=== PATIENT | male | born 1960 | race African-American/Black ===

== ENCOUNTER 2018-05-22 18:49 | Emergency (ER) | payer MEDICAID ==
[~2018-05-22] VITALS: Ht 185.4 cm; Wt 114.0 kg
[2018-05-22 19:11] VITALS: BP 177/119
== END 2018-05-22 22:00 | disposition left against medical advice (07) ==
LOC: ER 18:49
DX: R07.89 Other chest pain (principal); Z53.21 Procedure and treatment not carried out due to patient leaving prior to being seen by health care provider

== ENCOUNTER 2020-06-21 20:08 | Inpatient (IN) | payer MEDICAID ==
[~2020-06-21] VITALS: Ht 180.3 cm; Wt 93.9 kg
[2020-06-21] MEDS ORDERED: METOPROLOL TARTRATE 5MG/5ML VIAL IV ONE (20:45)
[2020-06-21] MEDS ORDERED: SODIUM CHLORIDE 0.9% 1,000 ML IV ONE (20:45)
[2020-06-21 20:52] LABS: BASOPHILS % 0.2 % (0.0-2.0); HEMATOCRIT. 51.5 % (42.0-52.0); HEMOGLOBIN. 16.3 g/dL (14.0-18.0); LYMPHOCYTES % 10.5 % (20.0-50.0); MEAN CORPUSCULAR VOLUME 91.7 fL (80.0-94.0); MEAN PLATELET VOLUME 9.6 fl (7.4-10.4); MONOCYTES % 10.6 % (2.0-8.0); NEUTROPHILS % 78.7 % (40.0-76.0); PLATELET 209 x1000/uL (130-400); RED BLOOD CELL COUNT 5.61 mill/uL (4.7-6.1); RED CELL DISTRIBUTION WIDTH 14.3 % (11.6-14.6)
[2020-06-21 20:58] LABS: CHLORIDE 110 mEq/L (98-107)
[2020-06-21] MEDS ORDERED: VANCOMYCIN 1 G PREMIX 200 ML IV ONE (21:00)
[2020-06-21] MEDS ORDERED: CEFTRIAXONE 1 G PREMIX 50 ML IV ONE (21:00)
[2020-06-21 21:02] LABS: ETHANOL BLOOD < 10 mg/dL; INR 1.1; PROTHROMBIN TIME 11.6 sec (9.6-11.0)
[2020-06-21] MEDS ORDERED: METOPROLOL TARTRATE 5MG/5ML VIAL IV NR (21:15)
[2020-06-21 21:23] LABS: BG BASE EXCESS 0.5 mmol/L (-2.0-2.0); BG CARBOXYHEMOGLOBIN 0.5 % (0.5-1.5); BG DEOXYHEMOGLOBIN 3.5 % (0.0-5.0); BG FRACTION INSPIRED OXYGEN 21; BG HCO3 ACT 24.1 mmol/L (22.0-26.0); BG METHEMOGLOBIN 0.3 % (0.0-1.5); BG OXYGEN SATURATION 96.5 % (92.0-98.5); BG OXYHEMOGLOBIN 95.7 % (94.0-97.0); BG PCO2 35.7 mmHg (35.0-45.0); BG PH 7.447 (7.350-7.450); BG PO2 85.8 mmHg (75.0-100.0); BG SAMPLE SITE LEFT RADIAL; BG TOTAL HEMOGLOBIN 15.4 g/dL (12.0-18.0); BG VENT MODE ROOM AIR
[2020-06-21 21:32] LABS: CREATINE KINASE 3276 IU/L (39-308)
[2020-06-21] MEDS ORDERED: SODIUM CHLORIDE 0.9% 1000ML BAG (SEPSIS BOLUS) IV ONE (22:00)
[2020-06-21 22:36] LABS: CLARITY URINE CLEAR (CLEAR); COLOR URINE DARK YELLOW (YELLOW); KETONES URINE 1+ (NEGATIVE); LEUKOCYTE ESTERASE URINE 1+ (NEGATIVE); NITRITE URINE NEGATIVE (NEGATIVE); OCCULT BLOOD URINE 1+ (NEGATIVE); PROTEIN URINE 1+ (NEGATIVE); SPECIFIC GRAVITY URINE 1.033 (1.005-1.030)
[2020-06-21 22:54] LABS: *AMPHETAMINES SCREEN URINE NEGATIVE (NEGATIVE); *BARBITURATES SCREEN URINE NEGATIVE (NEGATIVE); *BENZODIAZEPINES SCREEN URINE NEGATIVE (NEGATIVE); *COCAINE SCREEN URINE NEGATIVE (NEGATIVE)
[2020-06-21 22:55] LABS: CANNABINOID URINE SCREEN PRESUMTIVE POSITIVE (NEGATIVE); METHADONE URINE SCREEN NEGATIVE (NEGATIVE); OPIATES URINE SCREEN NEGATIVE (NEGATIVE); PHENCYCLIDINE URINE SCREEN NEGATIVE (NEGATIVE)
[2020-06-22] VITALS (82 sets, daily range): BP systolic 91–175; BP diastolic 36–121
[2020-06-22] MEDS: LEVETIRACETAM 500MG PREMIX 100 ML IV SCH ×3 (02:11→21:27)
[2020-06-22] MEDS ORDERED: ATOR-2 PO (02:26)
[2020-06-22] MEDS ORDERED: LISI40TA13 MT (02:26)
[2020-06-22] MEDS ORDERED: ASPI-1406 PO (02:26)
[2020-06-22] MEDS ORDERED: CLOP75TA33 PO (02:26)
[2020-06-22] MEDS ORDERED: *PATIENT'S OWN MEDICATION STORAGE XX SCH (03:15)
[2020-06-22] MEDS: DEXT 5%/LACTATED RINGERS 1,000 ML IV SCH ×2 (06:33→22:58)
[2020-06-22] MEDS: NICARDIPINE 100 MG in SODIUM CHLORIDE 0.9% 60 ML IV PRN ×2 (06:35→16:20)
[2020-06-22] MEDS: PANTOPRAZOLE SODIUM 40 MG/VIAL IV SCH (09:30)
[2020-06-22] MEDS: PIPERACILLIN/TAZOBACTAM 3.375 G in DEXT 5% WATER 100 ML IV SCH ×3 (09:30→22:58)
[2020-06-22] MEDS ORDERED: MANNITOL 20% (20GM/100ML) BAG 500ML PREMIX IV ONE (10:45)
[2020-06-22] MEDS ORDERED: THROMBIN (BOVINE) 5000 UNITS/VIAL TOP ONE (11:02)
[2020-06-22] MEDS ORDERED: BACITRACIN 15GM TUBE TOP ONE (11:02)
[2020-06-22] MEDS ORDERED: BACITRACIN 50,000 UNITS/VIAL ONE (11:03)
[2020-06-22] MEDS ORDERED: LACTATED RINGERS 3,000 ML IV ONE (11:03)
[2020-06-22] MEDS: DEXAMETHASONE 4MG/ML 1ML VIAL IV SCH ×3 (11:38→23:16)
[2020-06-22 11:50] LABS: HEPATITIS B SURFACE ANTIGEN NEGATIVE
[2020-06-22] MEDS ORDERED: MANNITOL 20% 125 ML IV NR (12:00)
[2020-06-22 12:19] LABS: HEPATITIS A AB IGM NEGATIVE (NEGATIVE)
[2020-06-22] MEDS ORDERED: DEXAMETHASONE 4MG/ML 1ML VIAL ONE (13:02)
[2020-06-22] MEDS ORDERED: ROCURONIUM BROMIDE 10MG/ML VIAL 5ML IV ONE (13:02)
[2020-06-22] MEDS ORDERED: HYDROMORPHONE HCL/PF 2MG/ML (OR) ONE (13:38)
[2020-06-22] MEDS ORDERED: CEFAZOLIN SODIUM 1000MG/VIAL IV SCH (14:00)
[2020-06-22] MEDS ORDERED: CEFAZOLIN SODIUM 1000MG/VIAL ONE (14:08)
[2020-06-22] MEDS ORDERED: METOPROLOL TARTRATE 5MG/5ML VIAL IV ONE (14:48)
[2020-06-22] MEDS ORDERED: HYDRALAZINE 20MG/ML VIAL ONE ×3 (14:50→15:21)
[2020-06-22] MEDS ORDERED: LABETALOL HCL 5MG/ML VIAL 20ML IV ONE (15:21)
[2020-06-22] MEDS: CEFAZOLIN 1000MG PREMIX 50 ML IV SCH ×2 (16:19→22:34)
[2020-06-22 17:32] LABS: BG BASE EXCESS -0.7 mmol/L (-2.0-2.0); BG CARBOXYHEMOGLOBIN 0.5 % (0.5-1.5); BG DEOXYHEMOGLOBIN 0.7 % (0.0-5.0); BG FRACTION INSPIRED OXYGEN 100; BG HCO3 ACT 24.4 mmol/L (22.0-26.0); BG METHEMOGLOBIN 0.5 % (0.0-1.5); BG OXYGEN SATURATION 99.3 % (92.0-98.5); BG OXYHEMOGLOBIN 98.3 % (94.0-97.0); BG PCO2 41.7 mmHg (35.0-45.0); BG PH 7.385 (7.350-7.450); BG PO2 197.2 mmHg (75.0-100.0); BG SAMPLE SITE RIGHT RADIAL; BG TOTAL HEMOGLOBIN 14.4 g/dL (12.0-18.0); BG TOTAL RESPIRATORY RATE 17 b/min; BG VENT MODE VENT - AC
[2020-06-22] MEDS: MORPHINE SULFATE 4 MG/ML CPJ (NOT FOR IM USE) IV PRN (21:28)
[2020-06-22] MEDS: PROPOFOL 10MG/ML 100ML 100 ML IV PRN (21:28)
[2020-06-23] VITALS (94 sets, daily range): BP systolic 95–152; BP diastolic 53–95
[2020-06-23] MEDS: PIPERACILLIN/TAZOBACTAM 3.375 G in DEXT 5% WATER 100 ML IV SCH ×4 (03:25→21:04)
[2020-06-23] MEDS: MORPHINE SULFATE 4 MG/ML CPJ (NOT FOR IM USE) IV PRN (03:41)
[2020-06-23] MEDS: CEFAZOLIN 1000MG PREMIX 50 ML IV SCH ×3 (05:51→21:04)
[2020-06-23] MEDS: DEXAMETHASONE 4MG/ML 1ML VIAL IV SCH ×4 (05:52→23:03)
[2020-06-23] MEDS: PROPOFOL 10MG/ML 100ML 100 ML IV PRN ×3 (05:55→22:53)
[2020-06-23 05:58] LABS: HEMOGLOBIN. 13.1 g/dL (14.0-18.0); MEAN CORPUSCULAR HEMOGLOBIN 29.2 pg (28.0-32.0); MEAN CORPUSCULAR VOLUME 91.7 fL (80.0-94.0); MEAN PLATELET VOLUME 9.3 fl (7.4-10.4); PLATELET 145 x1000/uL (130-400); RED BLOOD CELL COUNT 4.48 mill/uL (4.7-6.1); RED CELL DISTRIBUTION WIDTH 14.6 % (11.6-14.6)
[2020-06-23 06:20] LABS: CHLORIDE 115 mEq/L (98-107)
[2020-06-23 06:29] LABS: LDL CHOLESTEROL 82 mg/dL (5-100)
[2020-06-23 06:34] LABS: T4 FREE 1.24 ng/dL (0.76-1.46)
[2020-06-23 06:37] LABS: HDL CHOLESTEROL 36 mg/dL (40-59)
[2020-06-23 07:51] LABS: BG BASE EXCESS -0.3 mmol/L (-2.0-2.0); BG DEOXYHEMOGLOBIN 2.6 % (0.0-5.0); BG FRACTION INSPIRED OXYGEN 70; BG HCO3 ACT 24.8 mmol/L (22.0-26.0); BG METHEMOGLOBIN 0.3 % (0.0-1.5); BG OXYGEN SATURATION 97.4 % (92.0-98.5); BG OXYHEMOGLOBIN 97.1 % (94.0-97.0); BG PCO2 42.1 mmHg (35.0-45.0); BG PH 7.388 (7.350-7.450); BG PO2 100.2 mmHg (75.0-100.0); BG SAMPLE SITE ALINE; BG TOTAL HEMOGLOBIN 14.1 g/dL (12.0-18.0); BG TOTAL RESPIRATORY RATE 14 b/min; BG VENT MODE VENT - AC
[2020-06-23 09:03] LABS: PLATELET ESTIMATE NORMAL
[2020-06-23] MEDS: PANTOPRAZOLE SODIUM 40 MG/VIAL IV SCH (09:30)
[2020-06-23] MEDS: LEVETIRACETAM 500MG PREMIX 100 ML IV SCH ×2 (09:30→20:52)
[2020-06-23 10:59] LABS: BG BASE EXCESS 1.2 mmol/L (-2.0-2.0); BG CARBOXYHEMOGLOBIN 0.1 % (0.5-1.5); BG DEOXYHEMOGLOBIN 1.2 % (0.0-5.0); BG FRACTION INSPIRED OXYGEN 70; BG HCO3 ACT 26.2 mmol/L (22.0-26.0); BG METHEMOGLOBIN 0.3 % (0.0-1.5); BG OXYGEN SATURATION 98.8 % (92.0-98.5); BG OXYHEMOGLOBIN 98.4 % (94.0-97.0); BG PCO2 42.7 mmHg (35.0-45.0); BG PH 7.405 (7.350-7.450); BG PO2 142.7 mmHg (75.0-100.0); BG SAMPLE SITE RIGHT RADIAL; BG TOTAL HEMOGLOBIN 13.7 g/dL (12.0-18.0); BG VENT MODE VENT - AC
[2020-06-23] MEDS: DEXTROSE 5% WATER 1,000 ML IV SCH (12:43)
[2020-06-23] MEDS: NICARDIPINE 100 MG in SODIUM CHLORIDE 0.9% 60 ML IV PRN (14:27)
[2020-06-23 16:54] LABS: FOLIC ACID (FOLATE) SERUM 7.4 ng/mL (>5.38)
[2020-06-24] VITALS (98 sets, daily range): BP systolic 85–157; BP diastolic 49–92
[2020-06-24] MEDS: NICARDIPINE 100 MG in SODIUM CHLORIDE 0.9% 60 ML IV PRN ×3 (00:43→23:24)
[2020-06-24] MEDS: DEXTROSE 5% WATER 1,000 ML IV SCH ×2 (02:52→19:32)
[2020-06-24] MEDS: PROPOFOL 10MG/ML 100ML 100 ML IV PRN ×5 (02:54→23:54)
[2020-06-24] MEDS: PIPERACILLIN/TAZOBACTAM 3.375 G in DEXT 5% WATER 100 ML IV SCH ×4 (03:02→21:35)
[2020-06-24 05:46] LABS: HEMATOCRIT. 38.8 % (42.0-52.0); HEMOGLOBIN. 12.4 g/dL (14.0-18.0); MEAN CORPUSCULAR HEMOGLOBIN 29.4 pg (28.0-32.0); MEAN CORPUSCULAR VOLUME 91.6 fL (80.0-94.0); MEAN PLATELET VOLUME 9.4 fl (7.4-10.4); PLATELET 145 x1000/uL (130-400); RED BLOOD CELL COUNT 4.23 mill/uL (4.7-6.1); RED CELL DISTRIBUTION WIDTH 14.2 % (11.6-14.6)
[2020-06-24] MEDS: DEXAMETHASONE 4MG/ML 1ML VIAL IV SCH ×3 (05:52→17:27)
[2020-06-24] MEDS: CEFAZOLIN 1000MG PREMIX 50 ML IV SCH (05:52)
[2020-06-24 06:16] LABS: CREATINE KINASE 514 IU/L (39-308)
[2020-06-24 09:06] LABS: BG BASE EXCESS 1.8 mmol/L (-2.0-2.0); BG CARBOXYHEMOGLOBIN 0.5 % (0.5-1.5); BG DEOXYHEMOGLOBIN 2.1 % (0.0-5.0); BG FRACTION INSPIRED OXYGEN 60; BG HCO3 ACT 25.1 mmol/L (22.0-26.0); BG METHEMOGLOBIN 0.4 % (0.0-1.5); BG OXYGEN SATURATION 97.9 % (92.0-98.5); BG PCO2 35.1 mmHg (35.0-45.0); BG PH 7.472 (7.350-7.450); BG PO2 101.7 mmHg (75.0-100.0); BG SAMPLE SITE RIGHT RADIAL; BG TOTAL HEMOGLOBIN 13.9 g/dL (12.0-18.0); BG TOTAL RESPIRATORY RATE 18 b/min; BG VENT MODE VENT - AC
[2020-06-24] MEDS: PANTOPRAZOLE SODIUM 40 MG/VIAL IV SCH (09:09)
[2020-06-24] MEDS: LEVETIRACETAM 500MG PREMIX 100 ML IV SCH ×2 (09:09→21:35)
[2020-06-24 14:12] LABS: PLATELET ESTIMATE NORMAL
[2020-06-25] VITALS (96 sets, daily range): BP systolic 77–230; BP diastolic 13–111
[2020-06-25] MEDS: PIPERACILLIN/TAZOBACTAM 3.375 G in DEXT 5% WATER 100 ML IV SCH ×4 (03:38→21:36)
[2020-06-25 05:51] LABS: HEMATOCRIT. 38.7 % (42.0-52.0); HEMOGLOBIN. 12.6 g/dL (14.0-18.0); MEAN CORPUSCULAR HEMOGLOBIN 29.5 pg (28.0-32.0); MEAN CORPUSCULAR VOLUME 90.5 fL (80.0-94.0); PLATELET 145 x1000/uL (130-400); RED BLOOD CELL COUNT 4.27 mill/uL (4.7-6.1); RED CELL DISTRIBUTION WIDTH 13.4 % (11.6-14.6)
[2020-06-25 05:54] LABS: CHLORIDE 113 mEq/L (98-107)
[2020-06-25] MEDS: PROPOFOL 10MG/ML 100ML 100 ML IV PRN ×4 (05:57→23:42)
[2020-06-25 07:30] LABS: BG BASE EXCESS 2.2 mmol/L (-2.0-2.0); BG CARBOXYHEMOGLOBIN 0.3 % (0.5-1.5); BG DEOXYHEMOGLOBIN 2.4 % (0.0-5.0); BG FRACTION INSPIRED OXYGEN 40; BG HCO3 ACT 26.2 mmol/L (22.0-26.0); BG METHEMOGLOBIN 0.2 % (0.0-1.5); BG OXYGEN SATURATION 97.6 % (92.0-98.5); BG OXYHEMOGLOBIN 97.1 % (94.0-97.0); BG PCO2 38.8 mmHg (35.0-45.0); BG PH 7.448 (7.350-7.450); BG PO2 103.6 mmHg (75.0-100.0); BG SAMPLE SITE ALINE; BG TOTAL HEMOGLOBIN 13.3 g/dL (12.0-18.0); BG TOTAL RESPIRATORY RATE 18 b/min; BG VENT MODE VENT - SIMV
[2020-06-25] MEDS: LEVETIRACETAM 500MG PREMIX 100 ML IV SCH ×2 (08:47→20:17)
[2020-06-25] MEDS: PANTOPRAZOLE SODIUM 40 MG/VIAL IV SCH (08:47)
[2020-06-25 10:09] LABS: ANTI-THROMBIN ACTIVITY 87 % (75-135); DRVVT LA 45.5 sec (0.0-47.0); PROTEIN C FUNCTIONAL 86 % (73-180)
[2020-06-25 12:17] LABS: PLATELET ESTIMATE NORMAL
[2020-06-25 13:00] LABS: BG BASE EXCESS 1.9 mmol/L (-2.0-2.0); BG CARBOXYHEMOGLOBIN 0.3 % (0.5-1.5); BG HCO3 ACT 25.9 mmol/L (22.0-26.0); BG METHEMOGLOBIN 0.3 % (0.0-1.5); BG OXYHEMOGLOBIN 97.4 % (94.0-97.0); BG PCO2 38.2 mmHg (35.0-45.0); BG PH 7.449 (7.350-7.450); BG SAMPLE SITE ALINE; BG VENT MODE VENT - SIMV
[2020-06-25 13:06] LABS: LUPUS ANTICOAG INTERPRETATION Comment: (.)
[2020-06-25] MEDS: DEXTROSE 5% WATER 1,000 ML IV SCH (13:09)
[2020-06-26] VITALS (96 sets, daily range): BP systolic 90–148; BP diastolic 60–104
[2020-06-26] MEDS: PIPERACILLIN/TAZOBACTAM 3.375 G in DEXT 5% WATER 100 ML IV SCH ×4 (04:22→21:30)
[2020-06-26] MEDS: PROPOFOL 10MG/ML 100ML 100 ML IV PRN ×3 (04:23→18:47)
[2020-06-26 04:31] LABS: BASOPHILS % 0.1 % (0.0-2.0); HEMATOCRIT. 38.6 % (42.0-52.0); HEMOGLOBIN. 12.4 g/dL (14.0-18.0); LYMPHOCYTES % 8.3 % (20.0-50.0); MEAN CORPUSCULAR HEMOGLOBIN 29.3 pg (28.0-32.0); MEAN CORPUSCULAR VOLUME 91.2 fL (80.0-94.0); MEAN PLATELET VOLUME 8.9 fl (7.4-10.4); MONOCYTES % 11.6 % (2.0-8.0); PLATELET 164 x1000/uL (130-400); RED BLOOD CELL COUNT 4.23 mill/uL (4.7-6.1); RED CELL DISTRIBUTION WIDTH 13.7 % (11.6-14.6)
[2020-06-26 04:43] LABS: CHLORIDE 110 mEq/L (98-107)
[2020-06-26 05:10] LABS: ANTI-CARDIOLIPIN AB IGA < 9 APL U/mL (0-11); ANTI-CARDIOLIPIN AB IGG < 9 GPL U/mL (0-14); ANTI-CARDIOLIPIN AB IGM < 9 MPL U/mL (0-12)
[2020-06-26] MEDS: DEXTROSE 5% WATER 1,000 ML IV SCH ×2 (05:24→21:30)
[2020-06-26] MEDS: LEVETIRACETAM 500MG PREMIX 100 ML IV SCH ×2 (08:32→21:02)
[2020-06-26] MEDS: PANTOPRAZOLE SODIUM 40 MG/VIAL IV SCH (08:32)
[2020-06-27] VITALS (92 sets, daily range): BP systolic 93–133; BP diastolic 56–96
[2020-06-27] MEDS: PROPOFOL 10MG/ML 100ML 100 ML IV PRN ×5 (00:17→22:49)
[2020-06-27] MEDS: PIPERACILLIN/TAZOBACTAM 3.375 G in DEXT 5% WATER 100 ML IV SCH ×2 (03:28→10:38)
[2020-06-27 05:40] LABS: CHLORIDE 108 mEq/L (98-107)
[2020-06-27 05:44] LABS: BASOPHILS % 0.3 % (0.0-2.0); EOSINOPHILS % 0.8 % (0.0-5.0); HEMATOCRIT. 38.8 % (42.0-52.0); HEMOGLOBIN. 12.8 g/dL (14.0-18.0); LYMPHOCYTES % 20.1 % (20.0-50.0); MEAN CORPUSCULAR HEMOGLOBIN 29.5 pg (28.0-32.0); MEAN CORPUSCULAR VOLUME 89.3 fL (80.0-94.0); MEAN PLATELET VOLUME 8.5 fl (7.4-10.4); MONOCYTES % 13.6 % (2.0-8.0); NEUTROPHILS % 65.2 % (40.0-76.0); PLATELET 139 x1000/uL (130-400); RED BLOOD CELL COUNT 4.34 mill/uL (4.7-6.1); RED CELL DISTRIBUTION WIDTH 13.2 % (11.6-14.6)
[2020-06-27 08:04] LABS: BG BASE EXCESS 1.7 mmol/L (-2.0-2.0); BG CARBOXYHEMOGLOBIN 0.3 % (0.5-1.5); BG DEOXYHEMOGLOBIN 1.9 % (0.0-5.0); BG HCO3 ACT 25.8 mmol/L (22.0-26.0); BG METHEMOGLOBIN 0.1 % (0.0-1.5); BG OXYGEN SATURATION 98.1 % (92.0-98.5); BG OXYHEMOGLOBIN 97.7 % (94.0-97.0); BG PCO2 38.7 mmHg (35.0-45.0); BG PH 7.441 (7.350-7.450); BG PO2 113.2 mmHg (75.0-100.0); BG SAMPLE SITE ALINE; BG VENT MODE VENT - SIMV
[2020-06-27] MEDS: PANTOPRAZOLE SODIUM 40 MG/VIAL IV SCH (08:41)
[2020-06-27] MEDS: LEVETIRACETAM 500MG PREMIX 100 ML IV SCH ×2 (08:41→22:44)
[2020-06-27 13:56] LABS: CLARITY URINE CLEAR (CLEAR); COLOR URINE RED (YELLOW); KETONES URINE NEGATIVE (NEGATIVE); LEUKOCYTE ESTERASE URINE TRACE (NEGATIVE); NITRITE URINE NEGATIVE (NEGATIVE); OCCULT BLOOD URINE 3+ (NEGATIVE); PROTEIN URINE TRACE (NEGATIVE); SPECIFIC GRAVITY URINE 1.013 (1.005-1.030); UROBILINOGEN URINE 0.2 E.U./dL (0.2-1.0)
[2020-06-27] MEDS: DEXTROSE 5% WATER 1,000 ML IV SCH (15:24)
[2020-06-28] VITALS (101 sets, daily range): BP systolic 82–152; BP diastolic 25–111
[2020-06-28] MEDS: NICARDIPINE 100 MG in SODIUM CHLORIDE 0.9% 60 ML IV PRN (01:31)
[2020-06-28 05:45] LABS: BASOPHILS % 0.3 % (0.0-2.0); EOSINOPHILS % 1.7 % (0.0-5.0); HEMATOCRIT. 42.1 % (42.0-52.0); HEMOGLOBIN. 13.8 g/dL (14.0-18.0); LYMPHOCYTES % 17.5 % (20.0-50.0); MEAN CORPUSCULAR HEMOGLOBIN 29.3 pg (28.0-32.0); MEAN CORPUSCULAR VOLUME 89.7 fL (80.0-94.0); MEAN PLATELET VOLUME 8.9 fl (7.4-10.4); MONOCYTES % 11.5 % (2.0-8.0); PLATELET 137 x1000/uL (130-400); RED BLOOD CELL COUNT 4.69 mill/uL (4.7-6.1); RED CELL DISTRIBUTION WIDTH 13.2 % (11.6-14.6)
[2020-06-28 05:59] LABS: CHLORIDE 106 mEq/L (98-107)
[2020-06-28] MEDS: DEXTROSE 5% WATER 1,000 ML IV SCH (07:37)
[2020-06-28 08:01] LABS: BG BASE EXCESS 2.8 mmol/L (-2.0-2.0); BG CARBOXYHEMOGLOBIN 0.3 % (0.5-1.5); BG DEOXYHEMOGLOBIN 3.8 % (0.0-5.0); BG HCO3 ACT 26.1 mmol/L (22.0-26.0); BG METHEMOGLOBIN 0.2 % (0.0-1.5); BG OXYGEN SATURATION 96.2 % (92.0-98.5); BG OXYHEMOGLOBIN 95.7 % (94.0-97.0); BG PCO2 35.8 mmHg (35.0-45.0); BG PO2 81.5 mmHg (75.0-100.0); BG SAMPLE SITE RIGHT RADIAL; BG TOTAL HEMOGLOBIN 13.5 g/dL (12.0-18.0); BG VENT MODE VENT - SIMV
[2020-06-28] MEDS: PANTOPRAZOLE SODIUM 40 MG/VIAL IV SCH (08:42)
[2020-06-28] MEDS: LEVETIRACETAM 500MG PREMIX 100 ML IV SCH ×2 (08:42→20:06)
[2020-06-28] MEDS: PROPOFOL 10MG/ML 100ML 100 ML IV PRN ×2 (09:43→20:09)
[2020-06-28] MEDS ORDERED: POTASSIUM CHLORIDE 20MEQ/PACKET PO SCH (11:00)
[2020-06-28] MEDS: METOPROLOL TARTRATE 25MG TABLET PO SCH ×2 (11:08→20:07)
[2020-06-28] MEDS: ATORVASTATIN CALCIUM 40MG TABLET PO SCH (20:07)
[2020-06-29] VITALS (100 sets, daily range): BP systolic 96–163; BP diastolic 61–112
[2020-06-29] MEDS: DEXTROSE 5% WATER 1,000 ML IV SCH ×2 (02:39→17:52)
[2020-06-29] MEDS: ACETAMINOPHEN 650MG/20.3ML UDC NG PRN (04:17)
[2020-06-29] MEDS: PROPOFOL 10MG/ML 100ML 100 ML IV PRN ×2 (04:30→14:47)
[2020-06-29 05:53] LABS: BASOPHILS % 0.4 % (0.0-2.0); HEMOGLOBIN. 13.8 g/dL (14.0-18.0); LYMPHOCYTES % 9.9 % (20.0-50.0); MEAN CORPUSCULAR HEMOGLOBIN 29.1 pg (28.0-32.0); MONOCYTES % 11.4 % (2.0-8.0); NEUTROPHILS % 77.3 % (40.0-76.0); RED BLOOD CELL COUNT 4.73 mill/uL (4.7-6.1); RED CELL DISTRIBUTION WIDTH 13.2 % (11.6-14.6)
[2020-06-29 07:21] LABS: CHLORIDE 106 mEq/L (98-107)
[2020-06-29] MEDS: METOPROLOL TARTRATE 25MG TABLET PO SCH ×2 (08:19→21:05)
[2020-06-29] MEDS: LEVETIRACETAM 500MG PREMIX 100 ML IV SCH ×2 (08:19→21:05)
[2020-06-29] MEDS: PANTOPRAZOLE SODIUM 40 MG/VIAL IV SCH (08:19)
[2020-06-29 08:22] LABS: PLATELET ESTIMATE SLIGHTLY DECREASED
[2020-06-29 08:23] LABS: MEAN PLATELET VOLUME 9.1 fl (7.4-10.4); PLATELET 126 x1000/uL (130-400)
[2020-06-29 08:44] LABS: BG BASE EXCESS 0.5 mmol/L (-2.0-2.0); BG CARBOXYHEMOGLOBIN 0.4 % (0.5-1.5); BG DEOXYHEMOGLOBIN 1.9 % (0.0-5.0); BG FRACTION INSPIRED OXYGEN 352; BG HCO3 ACT 24.4 mmol/L (22.0-26.0); BG METHEMOGLOBIN 0.2 % (0.0-1.5); BG OXYGEN SATURATION 98.1 % (92.0-98.5); BG OXYHEMOGLOBIN 97.5 % (94.0-97.0); BG PCO2 36.7 mmHg (35.0-45.0); BG PO2 106.8 mmHg (75.0-100.0); BG SAMPLE SITE RIGHT RADIAL; BG TOTAL HEMOGLOBIN 13.6 g/dL (12.0-18.0); BG VENT MODE VENT - SIMV
[2020-06-29] MEDS: NICARDIPINE 100 MG in SODIUM CHLORIDE 0.9% 60 ML IV PRN (09:00)
[2020-06-29] MEDS: CEFTRIAXONE 1,000 MG in DEXTROSE 5% WATER 50 ML IV SCH (10:54)
[2020-06-29] MEDS: ATORVASTATIN CALCIUM 40MG TABLET PO SCH (21:05)
[2020-06-30] VITALS (87 sets, daily range): BP systolic 48–142; BP diastolic 40–95
[2020-06-30] MEDS: PROPOFOL 10MG/ML 100ML 100 ML IV PRN ×2 (01:53→09:54)
[2020-06-30 05:01] LABS: CHLORIDE 108 mEq/L (98-107)
[2020-06-30 05:04] LABS: BASOPHILS % 0.4 % (0.0-2.0); EOSINOPHILS % 1.5 % (0.0-5.0); HEMATOCRIT. 35.4 % (42.0-52.0); HEMOGLOBIN. 11.8 g/dL (14.0-18.0); LYMPHOCYTES % 8.1 % (20.0-50.0); MEAN CORPUSCULAR HEMOGLOBIN 29.4 pg (28.0-32.0); MEAN CORPUSCULAR VOLUME 88.8 fL (80.0-94.0); MEAN PLATELET VOLUME 8.5 fl (7.4-10.4); MONOCYTES % 8.1 % (2.0-8.0); NEUTROPHILS % 81.9 % (40.0-76.0); PLATELET 130 x1000/uL (130-400); RED BLOOD CELL COUNT 3.99 mill/uL (4.7-6.1); RED CELL DISTRIBUTION WIDTH 13.2 % (11.6-14.6)
[2020-06-30] MEDS: NICARDIPINE 100 MG in SODIUM CHLORIDE 0.9% 60 ML IV PRN (06:39)
[2020-06-30] MEDS: LEVETIRACETAM 500MG PREMIX 100 ML IV SCH ×2 (09:01→20:50)
[2020-06-30] MEDS: METOPROLOL TARTRATE 25MG TABLET PO SCH ×2 (09:01→20:50)
[2020-06-30] MEDS: PANTOPRAZOLE SODIUM 40 MG/VIAL IV SCH (09:01)
[2020-06-30] MEDS: CEFTRIAXONE 1,000 MG in DEXTROSE 5% WATER 50 ML IV SCH (09:50)
[2020-06-30] MEDS: DEXTROSE 5% WATER 1,000 ML IV SCH (09:54)
[2020-06-30] MEDS ORDERED: HYDRALAZINE HCL 25MG TABLET PO PRN (11:15)
[2020-06-30] MEDS ORDERED: PROPOFOL 10MG/ML 100ML 100 ML IV PRN (12:30)
[2020-06-30] MEDS: ATORVASTATIN CALCIUM 40MG TABLET PO SCH (20:50)
[2020-07-01] VITALS (81 sets, daily range): BP systolic 105–155; BP diastolic 59–123
[2020-07-01] MEDS: DEXTROSE 5% WATER 1,000 ML IV SCH ×2 (02:19→20:58)
[2020-07-01] MEDS: ACETAMINOPHEN 650MG/20.3ML UDC NG PRN (04:54)
[2020-07-01] MEDS: METOPROLOL TARTRATE 5MG/5ML VIAL IV PRN (05:04)
[2020-07-01 05:42] LABS: BASOPHILS % 0.2 % (0.0-2.0); EOSINOPHILS % 1.9 % (0.0-5.0); HEMATOCRIT. 37.6 % (42.0-52.0); HEMOGLOBIN. 12.2 g/dL (14.0-18.0); LYMPHOCYTES % 8.8 % (20.0-50.0); MEAN CORPUSCULAR HEMOGLOBIN 29.7 pg (28.0-32.0); MEAN CORPUSCULAR VOLUME 91.5 fL (80.0-94.0); MEAN PLATELET VOLUME 8.6 fl (7.4-10.4); NEUTROPHILS % 79.1 % (40.0-76.0); PLATELET 138 x1000/uL (130-400); RED BLOOD CELL COUNT 4.11 mill/uL (4.7-6.1); RED CELL DISTRIBUTION WIDTH 13.3 % (11.6-14.6)
[2020-07-01 05:44] LABS: CHLORIDE 106 mEq/L (98-107)
[2020-07-01] MEDS: IPRATROPIUM/ALBUTEROL 0.5-3(2.5)MG/3ML NEB HHN PRN ×2 (08:12→12:27)
[2020-07-01] MEDS: METOPROLOL TARTRATE 25MG TABLET PO SCH ×2 (08:30→21:00)
[2020-07-01] MEDS: PANTOPRAZOLE SODIUM 40 MG/VIAL IV SCH (08:30)
[2020-07-01] MEDS: LEVETIRACETAM 500MG PREMIX 100 ML IV SCH ×2 (08:30→20:58)
[2020-07-01 08:46] LABS: BG CARBOXYHEMOGLOBIN 0.3 % (0.5-1.5); BG DEOXYHEMOGLOBIN 1.5 % (0.0-5.0); BG FRACTION INSPIRED OXYGEN 35; BG HCO3 ACT 25.2 mmol/L (22.0-26.0); BG METHEMOGLOBIN 0.3 % (0.0-1.5); BG OXYGEN SATURATION 98.5 % (92.0-98.5); BG OXYHEMOGLOBIN 97.9 % (94.0-97.0); BG PCO2 38.8 mmHg (35.0-45.0); BG PO2 127.5 mmHg (75.0-100.0); BG SAMPLE SITE LEFT RADIAL; BG VENT MODE VENT - CPAP
[2020-07-01] MEDS: CEFTRIAXONE 1,000 MG in DEXTROSE 5% WATER 50 ML IV SCH (09:44)
[2020-07-01 12:35] LABS: BG BASE EXCESS 1.8 mmol/L (-2.0-2.0); BG CARBOXYHEMOGLOBIN 0.3 % (0.5-1.5); BG DEOXYHEMOGLOBIN 0.5 % (0.0-5.0); BG FRACTION INSPIRED OXYGEN 99.8; BG HCO3 ACT 24.3 mmol/L (22.0-26.0); BG METHEMOGLOBIN 0.3 % (0.0-1.5); BG OXYGEN SATURATION 99.5 % (92.0-98.5); BG OXYHEMOGLOBIN 98.9 % (94.0-97.0); BG PCO2 31.7 mmHg (35.0-45.0); BG PH 7.502 (7.350-7.450); BG PO2 311.4 mmHg (75.0-100.0); BG SAMPLE SITE LEFT RADIAL; BG TOTAL HEMOGLOBIN 12.9 g/dL (12.0-18.0); BG VENT MODE MASK - NRB
[2020-07-01] MEDS: ATORVASTATIN CALCIUM 40MG TABLET PO SCH (20:58)
[2020-07-02] VITALS (37 sets, daily range): BP systolic 105–158; BP diastolic 62–94
[2020-07-02] MEDS: ACETAMINOPHEN 650MG/20.3ML UDC NG PRN ×2 (01:15→21:25)
[2020-07-02 05:48] LABS: CHLORIDE 107 mEq/L (98-107)
[2020-07-02 05:53] LABS: BASOPHILS % 0.2 % (0.0-2.0); EOSINOPHILS % 2.2 % (0.0-5.0); HEMOGLOBIN. 11.9 g/dL (14.0-18.0); LYMPHOCYTES % 12.1 % (20.0-50.0); MEAN CORPUSCULAR HEMOGLOBIN 29.6 pg (28.0-32.0); MEAN CORPUSCULAR VOLUME 89.2 fL (80.0-94.0); MEAN PLATELET VOLUME 8.2 fl (7.4-10.4); MONOCYTES % 9.3 % (2.0-8.0); NEUTROPHILS % 76.2 % (40.0-76.0); PLATELET 176 x1000/uL (130-400); RED BLOOD CELL COUNT 4.04 mill/uL (4.7-6.1); RED CELL DISTRIBUTION WIDTH 13.5 % (11.6-14.6)
[2020-07-02] MEDS: LEVETIRACETAM 500MG PREMIX 100 ML IV SCH ×2 (08:38→21:24)
[2020-07-02] MEDS: METOPROLOL TARTRATE 25MG TABLET PO SCH ×2 (08:38→21:26)
[2020-07-02] MEDS: PANTOPRAZOLE SODIUM 40 MG/VIAL IV SCH (08:38)
[2020-07-02] MEDS: CEFTRIAXONE 1,000 MG in DEXTROSE 5% WATER 50 ML IV SCH (09:20)
[2020-07-02] MEDS: ATORVASTATIN CALCIUM 40MG TABLET PO SCH (21:24)
[2020-07-02] MEDS: METOPROLOL TARTRATE 5MG/5ML VIAL IV PRN (21:25)
[2020-07-03] VITALS (11 sets, daily range): BP systolic 128–147; BP diastolic 76–103
[2020-07-03] MEDS: MORPHINE SULFATE 2 MG/ML CPJ (NOT FOR IM USE) IV PRN (05:33)
[2020-07-03 06:08] LABS: CHLORIDE 107 mEq/L (98-107)
[2020-07-03 06:18] LABS: BASOPHILS % 0.3 % (0.0-2.0); HEMATOCRIT. 35.4 % (42.0-52.0); HEMOGLOBIN. 11.8 g/dL (14.0-18.0); LYMPHOCYTES % 13.3 % (20.0-50.0); MEAN CORPUSCULAR HEMOGLOBIN 30.1 pg (28.0-32.0); MEAN CORPUSCULAR VOLUME 90.1 fL (80.0-94.0); MONOCYTES % 9.3 % (2.0-8.0); NEUTROPHILS % 75.1 % (40.0-76.0); PLATELET 173 x1000/uL (130-400); RED BLOOD CELL COUNT 3.93 mill/uL (4.7-6.1); RED CELL DISTRIBUTION WIDTH 13.3 % (11.6-14.6)
[2020-07-03] MEDS: PANTOPRAZOLE SODIUM 40 MG/VIAL IV SCH (08:12)
[2020-07-03] MEDS: LEVETIRACETAM 500MG PREMIX 100 ML IV SCH ×2 (08:12→21:10)
[2020-07-03] MEDS: METOPROLOL TARTRATE 25MG TABLET PO SCH ×2 (08:17→21:13)
[2020-07-03] MEDS: CEFTRIAXONE 1,000 MG in DEXTROSE 5% WATER 50 ML IV SCH (09:50)
[2020-07-03] MEDS: ACETAMINOPHEN 650MG/20.3ML UDC NG PRN (16:19)
[2020-07-03] MEDS: ATORVASTATIN CALCIUM 40MG TABLET PO SCH (21:11)
[2020-07-04] VITALS (17 sets, daily range): BP systolic 123–148; BP diastolic 79–98
[2020-07-04] MEDS: METOPROLOL TARTRATE 25MG TABLET PO SCH ×2 (08:41→21:00)
[2020-07-04] MEDS: PANTOPRAZOLE SODIUM 40 MG/VIAL IV SCH (08:41)
[2020-07-04] MEDS: LEVETIRACETAM 500MG PREMIX 100 ML IV SCH ×2 (08:42→21:23)
[2020-07-04] MEDS: ATORVASTATIN CALCIUM 40MG TABLET PO SCH (21:23)
[2020-07-04] MEDS: METOPROLOL TARTRATE 5MG/5ML VIAL IV PRN (21:25)
[2020-07-05] VITALS (12 sets, daily range): BP systolic 117–158; BP diastolic 68–97
[2020-07-05 04:28] LABS: CHLORIDE 107 mEq/L (98-107)
[2020-07-05 04:36] LABS: PHOSPHORUS 3.7 mg/dL (2.5-4.9)
[2020-07-05 04:37] LABS: AMYLASE 63 IU/L (25-115)
[2020-07-05 04:38] LABS: CREATINE KINASE 195 IU/L (39-308)
[2020-07-05 04:43] LABS: BASOPHILS % 0.6 % (0.0-2.0); EOSINOPHILS % 1.3 % (0.0-5.0); HEMATOCRIT. 35.7 % (42.0-52.0); HEMOGLOBIN. 11.9 g/dL (14.0-18.0); LYMPHOCYTES % 13.1 % (20.0-50.0); MEAN CORPUSCULAR HEMOGLOBIN 29.8 pg (28.0-32.0); MEAN CORPUSCULAR VOLUME 88.9 fL (80.0-94.0); MEAN PLATELET VOLUME 7.8 fl (7.4-10.4); MONOCYTES % 8.9 % (2.0-8.0); NEUTROPHILS % 76.1 % (40.0-76.0); PLATELET 215 x1000/uL (130-400); RED BLOOD CELL COUNT 4.01 mill/uL (4.7-6.1); RED CELL DISTRIBUTION WIDTH 13.3 % (11.6-14.6)
[2020-07-05] MEDS: PANTOPRAZOLE SODIUM 40 MG/VIAL IV SCH (08:28)
[2020-07-05] MEDS: MORPHINE SULFATE 2 MG/ML CPJ (NOT FOR IM USE) IV PRN ×2 (08:29→12:01)
[2020-07-05] MEDS: LEVETIRACETAM 500MG PREMIX 100 ML IV SCH ×2 (08:29→21:02)
[2020-07-05] MEDS: METOPROLOL TARTRATE 25MG TABLET PO SCH ×2 (08:29→21:03)
[2020-07-05] MEDS: LACTULOSE 20G/30ML UDC PO SCH ×2 (12:01→20:18)
[2020-07-05] MEDS: ATORVASTATIN CALCIUM 40MG TABLET PO SCH (21:02)
[2020-07-06] VITALS (12 sets, daily range): BP systolic 121–143; BP diastolic 84–99
[2020-07-06] MEDS: MORPHINE SULFATE 2 MG/ML CPJ (NOT FOR IM USE) IV PRN (04:31)
[2020-07-06 06:20] LABS: BASOPHILS % 0.8 % (0.0-2.0); EOSINOPHILS % 1.8 % (0.0-5.0); HEMATOCRIT. 37.7 % (42.0-52.0); HEMOGLOBIN. 12.5 g/dL (14.0-18.0); LYMPHOCYTES % 7.2 % (20.0-50.0); MEAN CORPUSCULAR HEMOGLOBIN 29.8 pg (28.0-32.0); MEAN CORPUSCULAR VOLUME 89.7 fL (80.0-94.0); MEAN PLATELET VOLUME 8.2 fl (7.4-10.4); MONOCYTES % 6.8 % (2.0-8.0); NEUTROPHILS % 83.4 % (40.0-76.0); PLATELET 235 x1000/uL (130-400); RED CELL DISTRIBUTION WIDTH 13.4 % (11.6-14.6)
[2020-07-06 06:22] LABS: CHLORIDE 110 mEq/L (98-107)
[2020-07-06] MEDS: PANTOPRAZOLE SODIUM 40 MG/VIAL IV SCH (09:02)
[2020-07-06] MEDS: LACTULOSE 20G/30ML UDC PO SCH ×2 (09:03→16:29)
[2020-07-06] MEDS: METOPROLOL TARTRATE 25MG TABLET PO SCH (09:03)
[2020-07-06] MEDS: LEVETIRACETAM 500MG PREMIX 100 ML IV SCH ×2 (09:28→20:53)
[2020-07-06] MEDS: METOPROLOL TARTRATE 50MG TABLET PO SCH (20:54)
[2020-07-07] VITALS (13 sets, daily range): BP systolic 126–155; BP diastolic 70–99
[2020-07-07 06:48] LABS: BASOPHILS % 0.3 % (0.0-2.0); EOSINOPHILS % 0.5 % (0.0-5.0); HEMATOCRIT. 36.5 % (42.0-52.0); HEMOGLOBIN. 11.9 g/dL (14.0-18.0); LYMPHOCYTES % 10.8 % (20.0-50.0); MEAN CORPUSCULAR HEMOGLOBIN 29.5 pg (28.0-32.0); MEAN CORPUSCULAR VOLUME 90.6 fL (80.0-94.0); MEAN PLATELET VOLUME 8.1 fl (7.4-10.4); MONOCYTES % 10.3 % (2.0-8.0); NEUTROPHILS % 78.1 % (40.0-76.0); PLATELET 249 x1000/uL (130-400); RED BLOOD CELL COUNT 4.03 mill/uL (4.7-6.1); RED CELL DISTRIBUTION WIDTH 13.4 % (11.6-14.6)
[2020-07-07 06:58] LABS: CHLORIDE 108 mEq/L (98-107)
[2020-07-07] MEDS: LACTULOSE 20G/30ML UDC PO SCH ×2 (08:03→17:58)
[2020-07-07] MEDS: PANTOPRAZOLE SODIUM 40 MG/VIAL IV SCH (08:03)
[2020-07-07] MEDS: METOPROLOL TARTRATE 50MG TABLET PO SCH ×2 (08:04→21:10)
[2020-07-07] MEDS: LEVETIRACETAM 500MG PREMIX 100 ML IV SCH ×2 (08:04→21:09)
[2020-07-07] MEDS ORDERED: LORAZEPAM 2MG/ML CPJ IV PRN (13:00)
[2020-07-07] MEDS ORDERED: LORAZEPAM 2MG/ML CPJ ONE (13:00)
[2020-07-07] MEDS ORDERED: MORPHINE SULFATE 2 MG/ML CPJ (NOT FOR IM USE) IV PRN (14:45)
[2020-07-08] VITALS (12 sets, daily range): BP systolic 104–144; BP diastolic 78–100
[2020-07-08 07:25] LABS: CHLORIDE 109 mEq/L (98-107)
[2020-07-08 07:38] LABS: BASOPHILS % 0.5 % (0.0-2.0); EOSINOPHILS % 0.6 % (0.0-5.0); HEMATOCRIT. 35.5 % (42.0-52.0); HEMOGLOBIN. 11.9 g/dL (14.0-18.0); LYMPHOCYTES % 11.9 % (20.0-50.0); MEAN CORPUSCULAR HEMOGLOBIN 30.6 pg (28.0-32.0); MEAN CORPUSCULAR VOLUME 90.9 fL (80.0-94.0); MEAN PLATELET VOLUME 8.1 fl (7.4-10.4); MONOCYTES % 11.2 % (2.0-8.0); NEUTROPHILS % 75.8 % (40.0-76.0); PLATELET 237 x1000/uL (130-400); RED CELL DISTRIBUTION WIDTH 13.5 % (11.6-14.6)
[2020-07-08] MEDS: LEVETIRACETAM 500MG PREMIX 100 ML IV SCH ×2 (09:12→21:27)
[2020-07-08] MEDS: METOPROLOL TARTRATE 50MG TABLET PO SCH ×2 (09:13→21:28)
[2020-07-08] MEDS: PANTOPRAZOLE SODIUM 40 MG/VIAL IV SCH ×2 (09:13→21:27)
[2020-07-08] MEDS: LACTULOSE 20G/30ML UDC PO SCH ×2 (09:13→19:21)
[2020-07-08] MEDS: ONDANSETRON HCL 4MG/2ML INJ IV PRN (21:41)
[2020-07-09] VITALS (11 sets, daily range): BP systolic 123–151; BP diastolic 83–98
[2020-07-09 06:34] LABS: CHLORIDE 108 mEq/L (98-107)
[2020-07-09 06:34] LABS: INR 1.2; PROTHROMBIN TIME 12.6 sec (9.6-11.0)
[2020-07-09 06:48] LABS: BASOPHILS % 0.5 % (0.0-2.0); EOSINOPHILS % 0.9 % (0.0-5.0); HEMOGLOBIN. 11.6 g/dL (14.0-18.0); LYMPHOCYTES % 10.8 % (20.0-50.0); MEAN CORPUSCULAR HEMOGLOBIN 30.1 pg (28.0-32.0); MEAN CORPUSCULAR VOLUME 90.7 fL (80.0-94.0); MEAN PLATELET VOLUME 8.1 fl (7.4-10.4); MONOCYTES % 9.7 % (2.0-8.0); NEUTROPHILS % 78.1 % (40.0-76.0); PLATELET 221 x1000/uL (130-400); RED BLOOD CELL COUNT 3.86 mill/uL (4.7-6.1); RED CELL DISTRIBUTION WIDTH 13.6 % (11.6-14.6)
[2020-07-09] MEDS ORDERED: CEFAZOLIN 1000MG PREMIX 50 ML IV SCH (09:00)
[2020-07-09] MEDS: PANTOPRAZOLE SODIUM 40 MG/VIAL IV SCH ×2 (09:05→20:10)
[2020-07-09] MEDS: LEVETIRACETAM 500MG PREMIX 100 ML IV SCH ×2 (09:05→20:10)
[2020-07-09] MEDS: LACTULOSE 20G/30ML UDC PO SCH ×2 (09:05→16:03)
[2020-07-09] MEDS: METOPROLOL TARTRATE 50MG TABLET PO SCH ×2 (09:06→20:10)
[2020-07-09] MEDS ORDERED: FENTANYL CITRATE/PF 50MCG/ML 2ML VIAL ONE (11:11)
[2020-07-09] MEDS ORDERED: MIDAZOLAM HCL 5 MG/5 ML VIAL ONE ×2 (11:11→11:38)
[2020-07-09] MEDS ORDERED: MIDAZOLAM HCL 5 MG/5 ML VIAL IV PRN (11:21)
[2020-07-09] MEDS ORDERED: FENTANYL CITRATE/PF 50MCG/ML 2ML VIAL IV PRN (11:22)
[2020-07-09] MEDS ORDERED: DIPHENHYDRAMINE 50MG/ML VIAL IV PRN (11:34)
[2020-07-09] MEDS ORDERED: DIPHENHYDRAMINE 50MG/ML VIAL ONE (11:40)
[2020-07-10] VITALS (12 sets, daily range): BP systolic 121–137; BP diastolic 72–98
[2020-07-10] MEDS: METOCLOPRAMIDE HCL 10MG/2ML VIAL IV SCH ×3 (05:00→18:00)
[2020-07-10 05:34] LABS: CHLORIDE 107 mEq/L (98-107)
[2020-07-10 06:21] LABS: BASOPHILS % 0.2 % (0.0-2.0); EOSINOPHILS % 0.5 % (0.0-5.0); HEMATOCRIT. 38.3 % (42.0-52.0); HEMOGLOBIN. 12.4 g/dL (14.0-18.0); LYMPHOCYTES % 10.1 % (20.0-50.0); MEAN CORPUSCULAR HEMOGLOBIN 29.3 pg (28.0-32.0); MEAN CORPUSCULAR VOLUME 90.1 fL (80.0-94.0); MEAN PLATELET VOLUME 8.4 fl (7.4-10.4); MONOCYTES % 7.5 % (2.0-8.0); NEUTROPHILS % 81.7 % (40.0-76.0); PLATELET 211 x1000/uL (130-400); RED BLOOD CELL COUNT 4.25 mill/uL (4.7-6.1); RED CELL DISTRIBUTION WIDTH 13.5 % (11.6-14.6)
[2020-07-10] MEDS: METOPROLOL TARTRATE 50MG TABLET PO SCH ×2 (09:01→22:12)
[2020-07-10] MEDS: LACTULOSE 20G/30ML UDC PO SCH ×2 (09:01→19:16)
[2020-07-10] MEDS: PANTOPRAZOLE SODIUM 40 MG/VIAL IV SCH (09:01)
[2020-07-10] MEDS: LEVETIRACETAM 500MG PREMIX 100 ML IV SCH ×2 (09:02→22:12)
[2020-07-10] MEDS: ACETAMINOPHEN 650MG/20.3ML UDC NG PRN (18:56)
[2020-07-11] VITALS (13 sets, daily range): BP systolic 112–126; BP diastolic 71–99
[2020-07-11] MEDS: METOCLOPRAMIDE HCL 10MG/2ML VIAL IV SCH ×5 (05:32→23:46)
[2020-07-11] MEDS: PANTOPRAZOLE SODIUM 40 MG/VIAL IV SCH ×3 (05:33→20:34)
[2020-07-11 06:50] LABS: CHLORIDE 108 mEq/L (98-107)
[2020-07-11 06:54] LABS: BASOPHILS % 0.3 % (0.0-2.0); EOSINOPHILS % 0.2 % (0.0-5.0); HEMATOCRIT. 36.6 % (42.0-52.0); HEMOGLOBIN. 11.9 g/dL (14.0-18.0); LYMPHOCYTES % 7.9 % (20.0-50.0); MEAN CORPUSCULAR HEMOGLOBIN 29.4 pg (28.0-32.0); MEAN CORPUSCULAR VOLUME 90.7 fL (80.0-94.0); MONOCYTES % 6.5 % (2.0-8.0); NEUTROPHILS % 85.1 % (40.0-76.0); RED BLOOD CELL COUNT 4.04 mill/uL (4.7-6.1); RED CELL DISTRIBUTION WIDTH 13.4 % (11.6-14.6)
[2020-07-11] MEDS: ACETAMINOPHEN 650MG/20.3ML UDC NG PRN (08:07)
[2020-07-11] MEDS: LACTULOSE 20G/30ML UDC PO SCH ×2 (08:07→18:19)
[2020-07-11] MEDS: LEVETIRACETAM 500MG PREMIX 100 ML IV SCH ×2 (08:07→20:34)
[2020-07-11] MEDS: METOPROLOL TARTRATE 50MG TABLET PO SCH ×2 (08:08→20:35)
[2020-07-11 09:03] LABS: PLATELET 180 x1000/uL (130-400)
[2020-07-11 10:48] LABS: HEMATOCRIT. 37.3 % (42.0-52.0); HEMOGLOBIN. 12.1 g/dL (14.0-18.0); MEAN CORPUSCULAR HEMOGLOBIN 29.5 pg (28.0-32.0); MEAN CORPUSCULAR VOLUME 91.1 fL (80.0-94.0); MEAN PLATELET VOLUME 8.2 fl (7.4-10.4); PLATELET 178 x1000/uL (130-400); RED BLOOD CELL COUNT 4.09 mill/uL (4.7-6.1); RED CELL DISTRIBUTION WIDTH 13.3 % (11.6-14.6)
[2020-07-11 12:11] LABS: PLATELET ESTIMATE NORMAL
[2020-07-12] VITALS (11 sets, daily range): BP systolic 116–141; BP diastolic 66–97
[2020-07-12] MEDS: ACETAMINOPHEN 650MG/20.3ML UDC NG PRN ×2 (04:14→14:33)
[2020-07-12 06:56] LABS: BASOPHILS % 0.4 % (0.0-2.0); EOSINOPHILS % 0.6 % (0.0-5.0); HEMATOCRIT. 37.2 % (42.0-52.0); HEMOGLOBIN. 12.2 g/dL (14.0-18.0); LYMPHOCYTES % 11.5 % (20.0-50.0); MEAN CORPUSCULAR HEMOGLOBIN 29.7 pg (28.0-32.0); MEAN CORPUSCULAR VOLUME 90.7 fL (80.0-94.0); MEAN PLATELET VOLUME 8.5 fl (7.4-10.4); MONOCYTES % 8.4 % (2.0-8.0); NEUTROPHILS % 79.1 % (40.0-76.0); PLATELET 204 x1000/uL (130-400); RED CELL DISTRIBUTION WIDTH 13.4 % (11.6-14.6)
[2020-07-12 07:05] LABS: CHLORIDE 107 mEq/L (98-107)
[2020-07-12] MEDS: LACTULOSE 20G/30ML UDC PO SCH ×2 (09:05→18:33)
[2020-07-12] MEDS: LEVETIRACETAM 500MG PREMIX 100 ML IV SCH ×2 (09:05→20:46)
[2020-07-12] MEDS: PANTOPRAZOLE SODIUM 40 MG/VIAL IV SCH ×2 (09:05→20:46)
[2020-07-12] MEDS: METOPROLOL TARTRATE 100MG TABLET PO SCH ×2 (09:07→20:47)
[2020-07-12] MEDS ORDERED: LIDOCAINE HCL 1% 20ML VIAL (Pyxis) INJ ONE (10:05)
[2020-07-12] MEDS: LEVOFLOXACIN 500MG PREMIX 100 ML IV SCH (11:18)
[2020-07-13] VITALS (18 sets, daily range): BP systolic 100–133; BP diastolic 73–92
[2020-07-13 06:23] LABS: BASOPHILS % 0.2 % (0.0-2.0); EOSINOPHILS % 0.9 % (0.0-5.0); HEMATOCRIT. 33.8 % (42.0-52.0); HEMOGLOBIN. 10.9 g/dL (14.0-18.0); LYMPHOCYTES % 16.3 % (20.0-50.0); MEAN CORPUSCULAR HEMOGLOBIN 28.8 pg (28.0-32.0); MEAN CORPUSCULAR VOLUME 89.6 fL (80.0-94.0); MEAN PLATELET VOLUME 8.3 fl (7.4-10.4); MONOCYTES % 12.7 % (2.0-8.0); NEUTROPHILS % 69.9 % (40.0-76.0); PLATELET 218 x1000/uL (130-400); RED BLOOD CELL COUNT 3.77 mill/uL (4.7-6.1); RED CELL DISTRIBUTION WIDTH 13.3 % (11.6-14.6)
[2020-07-13 08:18] LABS: CHLORIDE 108 mEq/L (98-107)
[2020-07-13] MEDS: LACTULOSE 20G/30ML UDC PO SCH ×2 (08:50→17:11)
[2020-07-13] MEDS: METOPROLOL TARTRATE 100MG TABLET PO SCH ×2 (08:51→20:56)
[2020-07-13] MEDS: PANTOPRAZOLE SODIUM 40 MG/VIAL IV SCH ×2 (08:51→20:56)
[2020-07-13] MEDS: LEVETIRACETAM 500MG PREMIX 100 ML IV SCH ×2 (08:54→20:56)
[2020-07-13] MEDS: LEVOFLOXACIN 500MG PREMIX 100 ML IV SCH (10:39)
[2020-07-14] VITALS (11 sets, daily range): BP systolic 100–123; BP diastolic 72–87
[2020-07-14] MEDS: ACETAMINOPHEN 650MG/20.3ML UDC NG PRN ×2 (09:38→15:59)
[2020-07-14] MEDS: METOPROLOL TARTRATE 100MG TABLET PO SCH ×2 (09:38→21:00)
[2020-07-14] MEDS: PANTOPRAZOLE SODIUM 40 MG/VIAL IV SCH ×2 (09:38→21:05)
[2020-07-14] MEDS: ONDANSETRON HCL 4MG/2ML INJ IV PRN ×2 (09:38→15:59)
[2020-07-14] MEDS: LACTULOSE 20G/30ML UDC PO SCH ×2 (09:38→16:06)
[2020-07-14] MEDS: LEVOFLOXACIN 500MG PREMIX 100 ML IV SCH (09:39)
[2020-07-14] MEDS: LEVETIRACETAM 500MG PREMIX 100 ML IV SCH ×2 (09:39→21:05)
[2020-07-14] MEDS: RISPERIDONE 1MG TABLET PO SCH (13:00)
[2020-07-15] VITALS (10 sets, daily range): BP systolic 101–128; BP diastolic 76–91
[2020-07-15] MEDS: LEVETIRACETAM 500MG PREMIX 100 ML IV SCH ×2 (09:15→20:54)
[2020-07-15] MEDS: LACTULOSE 20G/30ML UDC PO SCH ×2 (09:15→18:07)
[2020-07-15] MEDS: PANTOPRAZOLE SODIUM 40 MG/VIAL IV SCH ×2 (09:15→20:53)
[2020-07-15] MEDS: RISPERIDONE 1MG TABLET PO SCH ×2 (09:16→18:07)
[2020-07-15] MEDS: METOPROLOL TARTRATE 100MG TABLET PO SCH ×2 (09:16→20:53)
[2020-07-15] MEDS: LEVOFLOXACIN 500MG PREMIX 100 ML IV SCH (09:31)
[2020-07-16] VITALS (28 sets, daily range): BP systolic 94–138; BP diastolic 43–93
[2020-07-16] MEDS: LEVETIRACETAM 500MG PREMIX 100 ML IV SCH ×2 (08:42→21:11)
[2020-07-16] MEDS: PANTOPRAZOLE SODIUM 40 MG/VIAL IV SCH ×2 (08:42→21:14)
[2020-07-16] MEDS: LACTULOSE 20G/30ML UDC PO SCH ×2 (08:42→16:51)
[2020-07-16] MEDS: RISPERIDONE 1MG TABLET PO SCH ×2 (08:43→16:51)
[2020-07-16] MEDS: METOPROLOL TARTRATE 100MG TABLET PO SCH ×2 (08:43→21:12)
[2020-07-16] MEDS: LEVOFLOXACIN 500MG PREMIX 100 ML IV SCH (10:29)
[2020-07-16] MEDS ORDERED: LIDOCAINE HCL 1% 20ML VIAL (Pyxis) INJ ONE (10:39)
[2020-07-16] MEDS ORDERED: IOHEXOL-300 100 ML BOTTLE ONE (10:42)
[2020-07-16 10:57] LABS: HEMATOCRIT. 34.1 % (42.0-52.0); HEMOGLOBIN. 11.3 g/dL (14.0-18.0); MEAN CORPUSCULAR HEMOGLOBIN 30.2 pg (28.0-32.0); MEAN CORPUSCULAR VOLUME 91.4 fL (80.0-94.0); MEAN PLATELET VOLUME 7.9 fl (7.4-10.4); PLATELET 222 x1000/uL (130-400); RED BLOOD CELL COUNT 3.73 mill/uL (4.7-6.1); RED CELL DISTRIBUTION WIDTH 13.4 % (11.6-14.6)
[2020-07-16 11:11] LABS: CHLORIDE 105 mEq/L (98-107)
[2020-07-16 17:50] LABS: PLATELET ESTIMATE NORMAL
[2020-07-17] VITALS (13 sets, daily range): BP systolic 98–140; BP diastolic 54–95
[2020-07-17] MEDS: LACTULOSE 20G/30ML UDC PO SCH ×2 (08:48→17:24)
[2020-07-17] MEDS: RISPERIDONE 1MG TABLET PO SCH ×2 (08:48→17:24)
[2020-07-17] MEDS: METOPROLOL TARTRATE 100MG TABLET PO SCH ×2 (08:49→20:21)
[2020-07-17] MEDS: PANTOPRAZOLE SODIUM 40 MG/VIAL IV SCH ×2 (08:49→20:20)
[2020-07-17] MEDS: LEVETIRACETAM 500MG PREMIX 100 ML IV SCH ×2 (08:50→20:20)
[2020-07-18] VITALS (12 sets, daily range): BP systolic 98–134; BP diastolic 64–96
[2020-07-18 07:14] LABS: CHLORIDE 105 mEq/L (98-107)
[2020-07-18] MEDS: LACTULOSE 20G/30ML UDC PO SCH ×2 (08:25→17:16)
[2020-07-18] MEDS: METOPROLOL TARTRATE 100MG TABLET PO SCH ×2 (08:29→20:29)
[2020-07-18] MEDS: LEVETIRACETAM 500MG PREMIX 100 ML IV SCH ×2 (08:30→20:27)
[2020-07-18] MEDS: RISPERIDONE 1MG TABLET PO SCH ×2 (08:30→17:17)
[2020-07-18] MEDS: PANTOPRAZOLE SODIUM 40 MG/VIAL IV SCH ×2 (08:30→20:28)
[2020-07-18 08:32] LABS: BASOPHILS % 0.4 % (0.0-2.0); EOSINOPHILS % 0.3 % (0.0-5.0); LYMPHOCYTES % 16.3 % (20.0-50.0); MEAN CORPUSCULAR VOLUME 89.9 fL (80.0-94.0); MONOCYTES % 13.7 % (2.0-8.0); NEUTROPHILS % 69.3 % (40.0-76.0); PLATELET 312 x1000/uL (130-400); RED BLOOD CELL COUNT 3.67 mill/uL (4.7-6.1); RED CELL DISTRIBUTION WIDTH 13.6 % (11.6-14.6)
[2020-07-18 16:41] LABS: CHLORIDE 105 mEq/L (98-107)
[2020-07-19] VITALS (11 sets, daily range): BP systolic 101–147; BP diastolic 66–96
[2020-07-19] MEDS: LACTULOSE 20G/30ML UDC PO SCH ×2 (08:16→16:31)
[2020-07-19] MEDS: PANTOPRAZOLE SODIUM 40 MG/VIAL IV SCH ×2 (08:16→21:15)
[2020-07-19] MEDS: METOPROLOL TARTRATE 100MG TABLET PO SCH ×2 (08:17→21:16)
[2020-07-19] MEDS: RISPERIDONE 1MG TABLET PO SCH ×2 (08:17→16:32)
[2020-07-19] MEDS: LEVETIRACETAM 500MG PREMIX 100 ML IV SCH ×2 (08:18→21:16)
[2020-07-19] MEDS: ACETAMINOPHEN 650MG/20.3ML UDC NG PRN ×2 (16:32→23:47)
[2020-07-20] VITALS (12 sets, daily range): BP systolic 99–124; BP diastolic 64–90
[2020-07-20 06:27] LABS: BASOPHILS % 0.3 % (0.0-2.0); EOSINOPHILS % 0.6 % (0.0-5.0); HEMOGLOBIN. 10.6 g/dL (14.0-18.0); LYMPHOCYTES % 13.1 % (20.0-50.0); MEAN CORPUSCULAR HEMOGLOBIN 29.5 pg (28.0-32.0); MEAN CORPUSCULAR VOLUME 89.2 fL (80.0-94.0); MEAN PLATELET VOLUME 7.9 fl (7.4-10.4); MONOCYTES % 8.6 % (2.0-8.0); NEUTROPHILS % 77.4 % (40.0-76.0); PLATELET 317 x1000/uL (130-400); RED BLOOD CELL COUNT 3.58 mill/uL (4.7-6.1); RED CELL DISTRIBUTION WIDTH 13.5 % (11.6-14.6)
[2020-07-20 06:33] LABS: CHLORIDE 104 mEq/L (98-107)
[2020-07-20] MEDS: PANTOPRAZOLE SODIUM 40 MG/VIAL IV SCH ×2 (09:05→20:58)
[2020-07-20] MEDS: LACTULOSE 20G/30ML UDC PO SCH ×2 (09:05→17:54)
[2020-07-20] MEDS: METOPROLOL TARTRATE 100MG TABLET PO SCH ×2 (09:05→20:58)
[2020-07-20] MEDS: RISPERIDONE 1MG TABLET PO SCH ×2 (09:06→17:54)
[2020-07-21] VITALS (18 sets, daily range): BP systolic 108–127; BP diastolic 69–88
[2020-07-21 06:56] LABS: CHLORIDE 104 mEq/L (98-107)
[2020-07-21 06:59] LABS: BASOPHILS % 0.1 % (0.0-2.0); EOSINOPHILS % 0.6 % (0.0-5.0); HEMATOCRIT. 34.3 % (42.0-52.0); HEMOGLOBIN. 11.2 g/dL (14.0-18.0); LYMPHOCYTES % 16.3 % (20.0-50.0); MEAN CORPUSCULAR HEMOGLOBIN 29.4 pg (28.0-32.0); MEAN CORPUSCULAR VOLUME 89.6 fL (80.0-94.0); MEAN PLATELET VOLUME 7.5 fl (7.4-10.4); MONOCYTES % 9.9 % (2.0-8.0); NEUTROPHILS % 73.1 % (40.0-76.0); PLATELET 330 x1000/uL (130-400); RED BLOOD CELL COUNT 3.83 mill/uL (4.7-6.1); RED CELL DISTRIBUTION WIDTH 13.3 % (11.6-14.6)
[2020-07-21] MEDS: METOPROLOL TARTRATE 100MG TABLET PO SCH ×2 (09:00→21:04)
[2020-07-21 12:05] LABS: CLARITY URINE CLEAR (CLEAR); COLOR URINE YELLOW (YELLOW); KETONES URINE NEGATIVE (NEGATIVE); LEUKOCYTE ESTERASE URINE TRACE (NEGATIVE); NITRITE URINE NEGATIVE (NEGATIVE); OCCULT BLOOD URINE NEGATIVE (NEGATIVE); PROTEIN URINE NEGATIVE (NEGATIVE); SPECIFIC GRAVITY URINE 1.024 (1.005-1.030)
[2020-07-21] MEDS: LACTULOSE 20G/30ML UDC PO SCH ×2 (13:01→16:31)
[2020-07-21] MEDS: PANTOPRAZOLE SODIUM 40 MG/VIAL IV SCH ×2 (13:01→20:51)
[2020-07-21] MEDS: RISPERIDONE 1MG TABLET PO SCH (16:32)
[2020-07-22] VITALS (12 sets, daily range): BP systolic 98–123; BP diastolic 65–90
[2020-07-22 07:07] LABS: BASOPHILS % 0.1 % (0.0-2.0); EOSINOPHILS % 0.5 % (0.0-5.0); HEMATOCRIT. 33.8 % (42.0-52.0); LYMPHOCYTES % 11.8 % (20.0-50.0); MEAN CORPUSCULAR HEMOGLOBIN 29.1 pg (28.0-32.0); MEAN CORPUSCULAR VOLUME 89.3 fL (80.0-94.0); MEAN PLATELET VOLUME 7.4 fl (7.4-10.4); MONOCYTES % 10.8 % (2.0-8.0); NEUTROPHILS % 76.8 % (40.0-76.0); PLATELET 302 x1000/uL (130-400); RED BLOOD CELL COUNT 3.79 mill/uL (4.7-6.1)
[2020-07-22 07:16] LABS: CHLORIDE 104 mEq/L (98-107)
[2020-07-22] MEDS: PANTOPRAZOLE SODIUM 40 MG/VIAL IV SCH ×2 (08:39→20:30)
[2020-07-22] MEDS: LACTULOSE 20G/30ML UDC PO SCH ×2 (08:39→17:45)
[2020-07-22] MEDS: RISPERIDONE 1MG TABLET PO SCH ×2 (08:39→17:45)
[2020-07-22] MEDS: METOPROLOL TARTRATE 100MG TABLET PO SCH ×2 (08:40→20:32)
[2020-07-22] MEDS: LORAZEPAM 2MG/ML CPJ IV PRN (15:27)
[2020-07-22] MEDS: ACETAMINOPHEN 650MG/20.3ML UDC NG PRN (17:49)
[2020-07-23] VITALS (12 sets, daily range): BP systolic 101–130; BP diastolic 61–90
[2020-07-23] MEDS: ACETAMINOPHEN 650MG/20.3ML UDC NG PRN (03:06)
[2020-07-23] MEDS: PANTOPRAZOLE SODIUM 40 MG/VIAL IV SCH ×2 (08:06→22:27)
[2020-07-23] MEDS: LACTULOSE 20G/30ML UDC PO SCH ×2 (08:06→17:20)
[2020-07-23] MEDS: METOPROLOL TARTRATE 100MG TABLET PO SCH ×2 (08:07→22:27)
[2020-07-23] MEDS: RISPERIDONE 1MG TABLET PO SCH ×2 (08:07→17:21)
[2020-07-24] VITALS (12 sets, daily range): BP systolic 97–125; BP diastolic 64–92
[2020-07-24] MEDS: ACETAMINOPHEN 650MG/20.3ML UDC NG PRN (00:21)
[2020-07-24] MEDS: LORAZEPAM 2MG/ML CPJ IV PRN (03:34)
[2020-07-24] MEDS: PANTOPRAZOLE SODIUM 40 MG/VIAL IV SCH ×2 (09:02→20:27)
[2020-07-24] MEDS: LACTULOSE 20G/30ML UDC PO SCH ×2 (09:02→17:07)
[2020-07-24] MEDS: METOPROLOL TARTRATE 100MG TABLET PO SCH ×2 (09:02→20:28)
[2020-07-24] MEDS: RISPERIDONE 1MG TABLET PO SCH ×2 (09:03→17:07)
[2020-07-24 19:44] LABS: BASOPHILS % 0.4 % (0.0-2.0); EOSINOPHILS % 0.3 % (0.0-5.0); HEMATOCRIT. 36.1 % (42.0-52.0); LYMPHOCYTES % 11.6 % (20.0-50.0); MEAN CORPUSCULAR HEMOGLOBIN 29.4 pg (28.0-32.0); MEAN CORPUSCULAR VOLUME 88.4 fL (80.0-94.0); MEAN PLATELET VOLUME 7.2 fl (7.4-10.4); MONOCYTES % 9.8 % (2.0-8.0); NEUTROPHILS % 77.9 % (40.0-76.0); PLATELET 288 x1000/uL (130-400); RED BLOOD CELL COUNT 4.08 mill/uL (4.7-6.1); RED CELL DISTRIBUTION WIDTH 13.6 % (11.6-14.6)
[2020-07-24 19:52] LABS: CHLORIDE 104 mEq/L (98-107)
[2020-07-25] VITALS (17 sets, daily range): BP systolic 92–122; BP diastolic 70–85
[2020-07-25] MEDS: LORAZEPAM 2MG/ML CPJ IV PRN (01:40)
[2020-07-25] MEDS: PANTOPRAZOLE SODIUM 40 MG/VIAL IV SCH ×2 (09:26→20:17)
[2020-07-25] MEDS: LACTULOSE 20G/30ML UDC PO SCH ×2 (09:26→16:57)
[2020-07-25] MEDS: RISPERIDONE 1MG TABLET PO SCH ×2 (09:26→16:57)
[2020-07-25] MEDS: METOPROLOL TARTRATE 5MG/5ML VIAL IV PRN (09:27)
[2020-07-25] MEDS: METOPROLOL TARTRATE 100MG TABLET PO SCH ×2 (09:36→20:18)
[2020-07-26] VITALS (11 sets, daily range): BP systolic 89–127; BP diastolic 55–80
[2020-07-26] MEDS: PANTOPRAZOLE SODIUM 40 MG/VIAL IV SCH ×2 (08:57→20:12)
[2020-07-26] MEDS: LACTULOSE 20G/30ML UDC PO SCH ×2 (08:58→16:26)
[2020-07-26] MEDS: RISPERIDONE 1MG TABLET PO SCH ×2 (08:58→16:27)
[2020-07-26] MEDS: METOPROLOL TARTRATE 100MG TABLET PO SCH ×2 (08:59→20:12)
[2020-07-27] VITALS (11 sets, daily range): BP systolic 92–119; BP diastolic 60–78
[2020-07-27] MEDS: RISPERIDONE 1MG TABLET PO SCH ×2 (09:37→16:59)
[2020-07-27] MEDS: PANTOPRAZOLE SODIUM 40 MG/VIAL IV SCH ×2 (09:37→20:36)
[2020-07-27] MEDS: LACTULOSE 20G/30ML UDC PO SCH ×2 (09:37→16:59)
[2020-07-27] MEDS: LORAZEPAM 2MG/ML CPJ IV PRN ×3 (12:00→20:36)
[2020-07-28] VITALS (12 sets, daily range): BP systolic 103–131; BP diastolic 70–87
[2020-07-28] MEDS: LORAZEPAM 2MG/ML CPJ IV PRN ×3 (04:07→12:27)
[2020-07-28] MEDS: LACTULOSE 20G/30ML UDC PO SCH ×2 (08:08→18:06)
[2020-07-28] MEDS: PANTOPRAZOLE SODIUM 40 MG/VIAL IV SCH ×2 (08:08→20:14)
[2020-07-28] MEDS: RISPERIDONE 1MG TABLET PO SCH ×2 (08:09→18:06)
[2020-07-28] MEDS: ACETAMINOPHEN 650MG/20.3ML UDC PO PRN (12:26)
[2020-07-28 16:27] LABS: BASOPHILS % 0.3 % (0.0-2.0); EOSINOPHILS % 0.7 % (0.0-5.0); HEMATOCRIT. 36.3 % (42.0-52.0); HEMOGLOBIN. 11.9 g/dL (14.0-18.0); MEAN CORPUSCULAR HEMOGLOBIN 29.5 pg (28.0-32.0); MEAN CORPUSCULAR VOLUME 90.1 fL (80.0-94.0); MEAN PLATELET VOLUME 7.5 fl (7.4-10.4); MONOCYTES % 12.1 % (2.0-8.0); NEUTROPHILS % 68.9 % (40.0-76.0); PLATELET 249 x1000/uL (130-400); RED BLOOD CELL COUNT 4.03 mill/uL (4.7-6.1); RED CELL DISTRIBUTION WIDTH 14.3 % (11.6-14.6)
[2020-07-28 16:32] LABS: CHLORIDE 103 mEq/L (98-107)
[2020-07-28] MEDS: METOPROLOL TARTRATE 25MG TABLET PO SCH (20:15)
[2020-07-29] VITALS (11 sets, daily range): BP systolic 104–131; BP diastolic 70–94
[2020-07-29] MEDS: LORAZEPAM 2MG/ML CPJ IV PRN ×4 (02:01→18:48)
[2020-07-29] MEDS: PANTOPRAZOLE SODIUM 40 MG/VIAL IV SCH ×2 (09:00→20:33)
[2020-07-29] MEDS: METOPROLOL TARTRATE 25MG TABLET PO SCH ×2 (10:22→20:33)
[2020-07-29] MEDS: LACTULOSE 20G/30ML UDC PO SCH ×2 (10:22→18:49)
[2020-07-29] MEDS: ACETAMINOPHEN 650MG/20.3ML UDC PO PRN (10:22)
[2020-07-29] MEDS: RISPERIDONE 1MG TABLET PO SCH ×2 (10:22→18:49)
[2020-07-29 14:17] LABS: CLARITY URINE CLOUDY (CLEAR); COLOR URINE YELLOW (YELLOW); KETONES URINE NEGATIVE (NEGATIVE); LEUKOCYTE ESTERASE URINE NEGATIVE (NEGATIVE); NITRITE URINE POSITIVE (NEGATIVE); OCCULT BLOOD URINE NEGATIVE (NEGATIVE); PH URINE 7.5 (4.5-8.0); PROTEIN URINE NEGATIVE (NEGATIVE); SPECIFIC GRAVITY URINE 1.025 (1.005-1.030)
[2020-07-29] MEDS ORDERED: CEFTRIAXONE 1 G PREMIX 50 ML IV SCH (16:45)
[2020-07-29] MEDS: CEFTRIAXONE 1,000 MG in DEXTROSE 5% WATER 50 ML IV SCH (19:00)
[2020-07-30] VITALS (12 sets, daily range): BP systolic 83–127; BP diastolic 63–83
[2020-07-30] MEDS: LORAZEPAM 2MG/ML CPJ IV PRN ×2 (00:34→17:19)
[2020-07-30] MEDS: ACETAMINOPHEN 650MG/20.3ML UDC PO PRN (01:42)
[2020-07-30 06:16] LABS: BASOPHILS % 0.4 % (0.0-2.0); EOSINOPHILS % 0.9 % (0.0-5.0); HEMATOCRIT. 37.8 % (42.0-52.0); HEMOGLOBIN. 12.2 g/dL (14.0-18.0); LYMPHOCYTES % 21.3 % (20.0-50.0); MEAN CORPUSCULAR HEMOGLOBIN 28.7 pg (28.0-32.0); MEAN PLATELET VOLUME 7.7 fl (7.4-10.4); MONOCYTES % 10.9 % (2.0-8.0); NEUTROPHILS % 66.5 % (40.0-76.0); PLATELET 239 x1000/uL (130-400); RED BLOOD CELL COUNT 4.25 mill/uL (4.7-6.1); RED CELL DISTRIBUTION WIDTH 14.7 % (11.6-14.6)
[2020-07-30 07:31] LABS: CHLORIDE 102 mEq/L (98-107)
[2020-07-30] MEDS: RISPERIDONE 1MG TABLET PO SCH ×2 (08:49→17:18)
[2020-07-30] MEDS: PANTOPRAZOLE SODIUM 40 MG/VIAL IV SCH ×2 (08:50→20:39)
[2020-07-30] MEDS: LACTULOSE 20G/30ML UDC PO SCH ×2 (08:50→17:18)
[2020-07-30] MEDS: METOPROLOL TARTRATE 25MG TABLET PO SCH (08:51)
[2020-07-30] MEDS: CEFTRIAXONE 1,000 MG in DEXTROSE 5% WATER 50 ML IV SCH (17:18)
[2020-07-30] MEDS ORDERED: METOPROLOL TARTRATE 25MG TABLET PO NR (18:15)
[2020-07-30] MEDS: METOPROLOL TARTRATE 50MG TABLET PO SCH (20:39)
[2020-07-31] VITALS (8 sets, daily range): BP systolic 94–117; BP diastolic 59–72
[2020-07-31] MEDS: METOPROLOL TARTRATE 50MG TABLET PO SCH ×2 (02:20→08:13)
[2020-07-31] MEDS: ACETAMINOPHEN 650MG/20.3ML UDC PO PRN ×2 (04:11→12:00)
[2020-07-31] MEDS: PANTOPRAZOLE SODIUM 40 MG/VIAL IV SCH (08:13)
[2020-07-31] MEDS: LACTULOSE 20G/30ML UDC PO SCH (08:13)
[2020-07-31] MEDS: RISPERIDONE 1MG TABLET PO SCH (08:13)
[2020-07-31] MEDS ORDERED: IPRATROPIUM/ALBUTEROL 0.5-3(2.5)MG/3ML NEB HHN PRN (10:45)
[2020-07-31] MEDS ORDERED: IPRATROPIUM/ALBUTEROL 0.5-3(2.5)MG/3ML NEB HHN SCH (12:00)
== END 2020-07-31 17:20 | DRG 21 ==
LOC: ER 20:08 → MICUSO 22:50 → ENRESERV 06-22 00:35 → ER 06-22 00:53 → 5EST 07-02 14:54
PROVIDERS: ADMIT Internal Medicine; ATTEND Internal Medicine
PROC: 0NU Head and Facial Bones, Supplement (ICD-10-PCS; principal; 2020-06-22)
PROC: 0NB Head and Facial Bones, Excision (ICD-10-PCS; 2020-06-22)
PROC: 00U207Z Supplement Dura Mater with Autologous Tissue Substitute, Open Approach (ICD-10-PCS; 2020-06-22)
PROC: 4A10X4Z Monitoring of Central Nervous Electrical Activity, External Approach (ICD-10-PCS; 2020-06-26)
PROC: 0DB68ZX Excision of Stomach, Via Natural or Artificial Opening Endoscopic, Diagnostic (ICD-10-PCS; 2020-07-09)
PROC: 02HV33Z Insertion of Infusion Device into Superior Vena Cava, Percutaneous Approach (ICD-10-PCS; 2020-07-12)
PROC: B548ZZA Ultrasonography of Superior Vena Cava, Guidance (ICD-10-PCS; 2020-07-12)
PROC: 0DH63UZ Insertion of Feeding Device into Stomach, Percutaneous Approach (ICD-10-PCS; 2020-07-14)
PROC: 06H03DZ Insertion of Intraluminal Device into Inferior Vena Cava, Percutaneous Approach (ICD-10-PCS; 2020-07-16)
PROC: B5191ZZ Fluoroscopy of Inferior Vena Cava using Low Osmolar Contrast (ICD-10-PCS; 2020-07-16)
PROC: B549ZZA Ultrasonography of Inferior Vena Cava, Guidance (ICD-10-PCS; 2020-07-16)
PROC: 5A1955Z Respiratory Ventilation, Greater than 96 Consecutive Hours (ICD-10-PCS; 2020-07-23)
PROC: 0BH17EZ Insertion of Endotracheal Airway into Trachea, Via Natural or Artificial Opening (ICD-10-PCS; 2020-07-23)
DX: I63.511 Cerebral infarction due to unspecified occlusion or stenosis of right middle cerebral artery (principal); I21.4 Non-ST elevation (NSTEMI) myocardial infarction; J96.00 Acute respiratory failure, unspecified whether with hypoxia or hypercapnia; J69.0 Pneumonitis due to inhalation of food and vomit; A41.9 Sepsis, unspecified organism; G93.1 Anoxic brain damage, not elsewhere classified; G93.41 Metabolic encephalopathy; I11.0 Hypertensive heart disease with heart failure; I50.22 Chronic systolic (congestive) heart failure; I82.412 Acute embolism and thrombosis of left femoral vein; G81.94 Hemiplegia, unspecified affecting left nondominant side; J98.11 Atelectasis; M62.82 Rhabdomyolysis; E87.2 Acidosis; E87.8 Other disorders of electrolyte and fluid balance, not elsewhere classified; D64.9 Anemia, unspecified; Z20.822 Contact with and (suspected) exposure to COVID-19; E78.00 Pure hypercholesterolemia, unspecified; E78.5 Hyperlipidemia, unspecified; F12.90 Cannabis use, unspecified, uncomplicated; I25.10 Atherosclerotic heart disease of native coronary artery without angina pectoris; I48.0 Paroxysmal atrial fibrillation; I49.3 Ventricular premature depolarization; I82.432 Acute embolism and thrombosis of left popliteal vein; R74.01 Elevation of levels of liver transaminase levels; K29.50 Unspecified chronic gastritis without bleeding; R13.10 Dysphagia, unspecified; R17 Unspecified jaundice; N39.0 Urinary tract infection, site not specified; Z78.1 Physical restraint status; Z86.73 Personal history of transient ischemic attack (TIA), and cerebral infarction without residual deficits; Z95.1 Presence of aortocoronary bypass graft; Z95.810 Presence of automatic (implantable) cardiac defibrillator; Z95.828 Presence of other vascular implants and grafts; Z79.82 Long term (current) use of aspirin; Z79.899 Other long term (current) drug therapy
CPT/HCPCS: 36415; 36600; 37191; 71045; 76705; 76937; 80048; 80053; 80061; 80076; 80305; 80320; 81003; 81400; 81403; 81407; 81479; 82140; 82150; 82248; 82375; 82550; 82607; 82746; 82805; 82962; 83036; 83605; 83735; 83880; 84100; 84145; 84439; 84443; 84478; 84481; 84484; 85025; 85300; 85303; 85306; 85613; 85732; 86147; 86705; 86709; 86803; 86850; 86900; 87070; 87340; 87426; 88305; 88313; 92523; 92610; 93005; 93306; 93880; 93971; 94002; 94003; 94640; 94667; 97162; 99291; A6261; C1725; C1769; C1880; C9113; J0360; J0690; J0696; J1100; J1170; J1200; J1644; J1953; J1956; J2060; J2250; J2270; J2405; J2543; J2704; J2765; J3010; J3370; J3490; J7030; J7050; J7060; J7070; J7120; J7121; Q9967; U0003; A4315; G0480

== ENCOUNTER 2020-11-07 21:19 | Inpatient (IN) | payer MEDICAID ==
[~2020-11-07] VITALS: Ht 182.9 cm; Wt 78.5 kg
[~2020-11-07 21:19] MED LIST: SODIUM CHLORIDE 0.9% 10ML VIAL ONE; VECURONIUM BROMIDE 10 MG/VIAL IV ONE
[2020-11-07] MEDS ORDERED: ONDANSETRON HCL 4MG/2ML INJ IV STA (21:35)
[2020-11-07] MEDS ORDERED: MORPHINE SULFATE 4 MG/ML CPJ (NOT FOR IM USE) IV STA (21:35)
[2020-11-07] MEDS ORDERED: LORAZEPAM 2MG/ML CPJ IV ONE (21:45)
[2020-11-07] MEDS ORDERED: PROPOFOL 10MG/ML 100ML 100 ML IV ONE (21:45)
[2020-11-07] MEDS ORDERED: VECURONIUM BROMIDE 10 MG/VIAL IV ONE (21:45)
[2020-11-07] MEDS ORDERED: MIDAZOLAM HCL 50 MG in DEXTROSE 5% WATER 40 ML IV ONE (21:45)
[2020-11-07] MEDS ORDERED: LEVETIRACETAM 500MG PREMIX 100 ML IV ONE (21:45)
[2020-11-07] MEDS ORDERED: MIDAZOLAM HCL 100 MG in SODIUM CHLORIDE 0.9% 80 ML IV NR (22:03)
[2020-11-07 22:43] LABS: BASOPHILS % 0.5 % (0.0-2.0); EOSINOPHILS % 0.5 % (0.0-5.0); HEMATOCRIT. 43.1 % (42.0-52.0); HEMOGLOBIN. 14.7 g/dL (14.0-18.0); LYMPHOCYTES % 19.9 % (20.0-50.0); MEAN CORPUSCULAR HEMOGLOBIN 29.5 pg (28.0-32.0); MEAN CORPUSCULAR VOLUME 86.3 fL (80.0-94.0); MEAN PLATELET VOLUME 8.4 fl (7.4-10.4); MONOCYTES % 9.9 % (2.0-8.0); NEUTROPHILS % 69.2 % (40.0-76.0); PLATELET 242 x1000/uL (130-400); RED BLOOD CELL COUNT 4.99 mill/uL (4.7-6.1); RED CELL DISTRIBUTION WIDTH 14.8 % (11.6-14.6)
[2020-11-07 23:00] LABS: CHLORIDE 104 mEq/L (98-107)
[2020-11-07 23:11] LABS: INR 1.1; PROTHROMBIN TIME 11.4 sec (9.6-11.0)
[2020-11-07 23:28] LABS: CLARITY URINE CLEAR (CLEAR); COLOR URINE DARK YELLOW (YELLOW); KETONES URINE TRACE (NEGATIVE); LEUKOCYTE ESTERASE URINE NEGATIVE (NEGATIVE); NITRITE URINE NEGATIVE (NEGATIVE); OCCULT BLOOD URINE NEGATIVE (NEGATIVE); PH URINE 5.5 (4.5-8.0); PROTEIN URINE TRACE (NEGATIVE); SPECIFIC GRAVITY URINE 1.023 (1.005-1.030)
[2020-11-08] VITALS (47 sets, daily range): BP systolic 108–139; BP diastolic 66–100
[2020-11-08 00:19] LABS: BG BASE EXCESS 0.1 mmol/L (-2.0-2.0); BG CARBOXYHEMOGLOBIN 0.4 % (0.5-1.5); BG DEOXYHEMOGLOBIN 0.5 % (0.0-5.0); BG FRACTION INSPIRED OXYGEN 50; BG HCO3 ACT 23.2 mmol/L (22.0-26.0); BG METHEMOGLOBIN 0.3 % (0.0-1.5); BG OXYGEN SATURATION 99.5 % (92.0-98.5); BG OXYHEMOGLOBIN 98.8 % (94.0-97.0); BG PCO2 33.3 mmHg (35.0-45.0); BG PO2 204.8 mmHg (75.0-100.0); BG SAMPLE SITE RIGHT RADIAL; BG TOTAL HEMOGLOBIN 14.9 g/dL (12.0-18.0); BG VENT MODE VENT - AC
[2020-11-08] MEDS ORDERED: NOREPINEPHRINE 8MG/250ML PMX 250 ML IV PRN (02:30)
[2020-11-08] MEDS ORDERED: NOREPINEPHRINE 8 MG in DEXTROSE 5% WATER 250 ML IV PRN (07:30)
[2020-11-08] MEDS ORDERED: ONDANSETRON HCL 4MG/2ML INJ IV PRN (08:15)
[2020-11-08] MEDS ORDERED: LEVETIRACETAM 500 MG in SODIUM CHLORIDE 0.9% 100 ML IV SCH (08:15)
[2020-11-08 09:31] LABS: BG BASE EXCESS -0.4 mmol/L (-2.0-2.0); BG CARBOXYHEMOGLOBIN 0.3 % (0.5-1.5); BG DEOXYHEMOGLOBIN 0.5 % (0.0-5.0); BG FRACTION INSPIRED OXYGEN 60; BG HCO3 ACT 22.6 mmol/L (22.0-26.0); BG METHEMOGLOBIN 0.1 % (0.0-1.5); BG OXYGEN SATURATION 99.5 % (92.0-98.5); BG OXYHEMOGLOBIN 99.1 % (94.0-97.0); BG PCO2 32.8 mmHg (35.0-45.0); BG PH 7.457 (7.350-7.450); BG PO2 258.1 mmHg (75.0-100.0); BG SAMPLE SITE RIGHT RADIAL; BG TOTAL HEMOGLOBIN 14.5 g/dL (12.0-18.0); BG VENT MODE VENT - AC
[2020-11-08] MEDS ORDERED: ASPI-1497 MT (09:47)
[2020-11-08] MEDS ORDERED: LACT10SO30 MT (09:47)
[2020-11-08] MEDS ORDERED: METO-396 MT (09:48)
[2020-11-08] MEDS: LEVETIRACETAM 500MG PREMIX 100 ML IV SCH ×2 (09:50→21:42)
[2020-11-08 10:09] LABS: BASOPHILS % 0.1 % (0.0-2.0); HEMATOCRIT. 41.1 % (42.0-52.0); HEMOGLOBIN. 13.6 g/dL (14.0-18.0); LYMPHOCYTES % 8.5 % (20.0-50.0); MEAN CORPUSCULAR HEMOGLOBIN 28.9 pg (28.0-32.0); MEAN CORPUSCULAR VOLUME 87.2 fL (80.0-94.0); MEAN PLATELET VOLUME 8.1 fl (7.4-10.4); MONOCYTES % 8.4 % (2.0-8.0); PLATELET 250 x1000/uL (130-400); RED BLOOD CELL COUNT 4.71 mill/uL (4.7-6.1); RED CELL DISTRIBUTION WIDTH 14.6 % (11.6-14.6)
[2020-11-08 10:16] LABS: CHLORIDE 103 mEq/L (98-107)
[2020-11-08] MEDS ORDERED: PROPOFOL 10MG/ML 100ML 100 ML IV PRN (10:30)
[2020-11-08] MEDS ORDERED: MIDAZOLAM HCL 100 MG in SODIUM CHLORIDE 0.9% 80 ML IV PRN (10:30)
[2020-11-08] MEDS ORDERED: IPRATROPIUM/ALBUTEROL 0.5-3(2.5)MG/3ML NEB HHN PRN (10:30)
[2020-11-08] MEDS ORDERED: FENTANYL CITRATE/PF 2,500 MCG in SODIUM CHLORIDE 0.9% 200 ML IV PRN (10:30)
[2020-11-08] MEDS ORDERED: ENOXAPARIN 80MG/0.8ML SYR SUBCUT SCH (11:30)
[2020-11-08] MEDS: DEXT 5%/0.45% NACL 1000ML 1,000 ML IV SCH (11:54)
[2020-11-08] MEDS ORDERED: CEFTRIAXONE 1 G PREMIX 50 ML IV SCH (12:00)
[2020-11-08] MEDS ORDERED: CARVEDILOL 6.25 MG TABLET PO NR (12:30)
[2020-11-08] MEDS: CEFTRIAXONE 1,000 MG in DEXTROSE 5% WATER 50 ML IV SCH (13:14)
[2020-11-08] MEDS: IPRATROPIUM/ALBUTEROL 0.5-3(2.5)MG/3ML NEB HHN SCH ×2 (14:15→20:29)
[2020-11-08] MEDS: CARVEDILOL 6.25 MG TABLET PO SCH (21:43)
[2020-11-08] MEDS: ENOXAPARIN 80MG/0.8ML SYR SUBCUT SCH (22:07)
[2020-11-09] VITALS (71 sets, daily range): BP systolic 84–156; BP diastolic 48–101
[2020-11-09] MEDS: DEXT 5%/0.45% NACL 1000ML 1,000 ML IV SCH ×2 (00:33→15:24)
[2020-11-09] MEDS: IPRATROPIUM/ALBUTEROL 0.5-3(2.5)MG/3ML NEB HHN SCH ×4 (02:40→21:43)
[2020-11-09 06:29] LABS: BASOPHILS % 0.2 % (0.0-2.0); EOSINOPHILS % 0.2 % (0.0-5.0); HEMATOCRIT. 38.3 % (42.0-52.0); LYMPHOCYTES % 12.5 % (20.0-50.0); MEAN CORPUSCULAR HEMOGLOBIN 29.3 pg (28.0-32.0); MEAN CORPUSCULAR VOLUME 86.4 fL (80.0-94.0); MEAN PLATELET VOLUME 8.3 fl (7.4-10.4); MONOCYTES % 9.3 % (2.0-8.0); NEUTROPHILS % 77.8 % (40.0-76.0); PLATELET 221 x1000/uL (130-400); RED BLOOD CELL COUNT 4.43 mill/uL (4.7-6.1); RED CELL DISTRIBUTION WIDTH 14.2 % (11.6-14.6)
[2020-11-09] MEDS: VANCOMYCIN 1 G PREMIX 200 ML IV SCH ×3 (06:47→21:41)
[2020-11-09 06:58] LABS: CHLORIDE 102 mEq/L (98-107)
[2020-11-09] MEDS ORDERED: DILTIAZEM HCL 5MG/ML 5ML VIAL IV SCH (08:30)
[2020-11-09] MEDS: LEVETIRACETAM 500MG PREMIX 100 ML IV SCH ×2 (08:49→20:19)
[2020-11-09] MEDS: CARVEDILOL 6.25 MG TABLET PO SCH (08:49)
[2020-11-09] MEDS: ENOXAPARIN 80MG/0.8ML SYR SUBCUT SCH (09:32)
[2020-11-09] MEDS: ACETAMINOPHEN 325MG TABLET PO PRN (09:33)
[2020-11-09 10:15] LABS: INR 1.2; PROTHROMBIN TIME 12.4 sec (9.6-11.0)
[2020-11-09 11:30] LABS: BG BASE EXCESS 0.5 mmol/L (-2.0-2.0); BG CARBOXYHEMOGLOBIN 0.3 % (0.5-1.5); BG FRACTION INSPIRED OXYGEN 50; BG HCO3 ACT 23.7 mmol/L (22.0-26.0); BG METHEMOGLOBIN 0.5 % (0.0-1.5); BG OXYHEMOGLOBIN 98.2 % (94.0-97.0); BG PCO2 33.9 mmHg (35.0-45.0); BG PH 7.463 (7.350-7.450); BG PO2 205.1 mmHg (75.0-100.0); BG SAMPLE SITE LEFT BRACHIAL; BG TOTAL HEMOGLOBIN 13.1 g/dL (12.0-18.0); BG TOTAL RESPIRATORY RATE 16 b/min; BG VENT MODE VENT - AC
[2020-11-09] MEDS: CEFTRIAXONE 1,000 MG in DEXTROSE 5% WATER 50 ML IV SCH (12:50)
[2020-11-09] MEDS ORDERED: LIDOCAINE HCL 1% 20ML VIAL (Pyxis) INJ ONE (13:05)
[2020-11-09] MEDS: PANTOPRAZOLE 40MG DR TABLET PO SCH (15:26)
[2020-11-09] MEDS: CARVEDILOL 12.5MG TABLET PO SCH (20:19)
[2020-11-09] MEDS ORDERED: MAGNESIUM 2 G PREMIX 50 ML IV NR (23:45)
[2020-11-10] VITALS (76 sets, daily range): BP systolic 98–136; BP diastolic 61–93
[2020-11-10] MEDS: IPRATROPIUM/ALBUTEROL 0.5-3(2.5)MG/3ML NEB HHN SCH ×4 (01:49→20:34)
[2020-11-10] MEDS: DEXT 5%/0.45% NACL 1000ML 1,000 ML IV SCH (05:22)
[2020-11-10] MEDS: VANCOMYCIN 1 G PREMIX 200 ML IV SCH (05:22)
[2020-11-10 06:01] LABS: CHLORIDE 102 mEq/L (98-107)
[2020-11-10 06:02] LABS: BASOPHILS % 0.1 % (0.0-2.0); EOSINOPHILS % 0.7 % (0.0-5.0); HEMATOCRIT. 35.3 % (42.0-52.0); HEMOGLOBIN. 11.9 g/dL (14.0-18.0); LYMPHOCYTES % 13.7 % (20.0-50.0); MEAN CORPUSCULAR VOLUME 86.1 fL (80.0-94.0); MEAN PLATELET VOLUME 8.2 fl (7.4-10.4); MONOCYTES % 8.1 % (2.0-8.0); NEUTROPHILS % 77.4 % (40.0-76.0); PLATELET 205 x1000/uL (130-400)
[2020-11-10 08:29] LABS: BG BASE EXCESS -0.4 mmol/L (-2.0-2.0); BG CARBOXYHEMOGLOBIN 0.3 % (0.5-1.5); BG DEOXYHEMOGLOBIN 0.9 % (0.0-5.0); BG FRACTION INSPIRED OXYGEN 50; BG METHEMOGLOBIN 0.5 % (0.0-1.5); BG OXYGEN SATURATION 99.1 % (92.0-98.5); BG OXYHEMOGLOBIN 98.3 % (94.0-97.0); BG PCO2 33.6 mmHg (35.0-45.0); BG PH 7.453 (7.350-7.450); BG PO2 143.3 mmHg (75.0-100.0); BG SAMPLE SITE RIGHT RADIAL; BG TOTAL HEMOGLOBIN 12.5 g/dL (12.0-18.0); BG TOTAL RESPIRATORY RATE 19 b/min; BG VENT MODE VENT - AC
[2020-11-10] MEDS: PANTOPRAZOLE 40MG DR TABLET PO SCH (08:33)
[2020-11-10] MEDS: LEVETIRACETAM 500MG PREMIX 100 ML IV SCH ×2 (08:33→20:13)
[2020-11-10] MEDS: CARVEDILOL 12.5MG TABLET PO SCH ×2 (08:35→20:13)
[2020-11-10] MEDS: CEFTRIAXONE 1,000 MG in DEXTROSE 5% WATER 50 ML IV SCH (12:26)
[2020-11-10] MEDS ORDERED: VANCOMYCIN 1250MG in DEXTROSE 5% WATER 250ML IV SCH (13:00)
[2020-11-10] MEDS: VANCOMYCIN 1250MG in DEXTROSE 5% WATER 250ML IV SCH (15:05)
[2020-11-11] VITALS (84 sets, daily range): BP systolic 91–132; BP diastolic 55–85
[2020-11-11] MEDS: IPRATROPIUM/ALBUTEROL 0.5-3(2.5)MG/3ML NEB HHN SCH ×4 (00:46→20:36)
[2020-11-11] MEDS: DEXT 5%/0.45% NACL 1000ML 1,000 ML IV SCH (01:50)
[2020-11-11] MEDS: VANCOMYCIN 1250MG in DEXTROSE 5% WATER 250ML IV SCH ×2 (02:59→17:26)
[2020-11-11 05:57] LABS: BASOPHILS % 0.1 % (0.0-2.0); EOSINOPHILS % 0.7 % (0.0-5.0); HEMATOCRIT. 34.2 % (42.0-52.0); HEMOGLOBIN. 11.5 g/dL (14.0-18.0); LYMPHOCYTES % 9.7 % (20.0-50.0); MEAN CORPUSCULAR VOLUME 86.2 fL (80.0-94.0); MEAN PLATELET VOLUME 7.8 fl (7.4-10.4); MONOCYTES % 9.5 % (2.0-8.0); PLATELET 197 x1000/uL (130-400); RED BLOOD CELL COUNT 3.97 mill/uL (4.7-6.1); RED CELL DISTRIBUTION WIDTH 14.2 % (11.6-14.6)
[2020-11-11 06:03] LABS: CHLORIDE 103 mEq/L (98-107)
[2020-11-11] MEDS: PANTOPRAZOLE 40MG DR TABLET PO SCH (08:55)
[2020-11-11] MEDS: LEVETIRACETAM 500MG/5ML CUP PO SCH ×2 (08:57→20:34)
[2020-11-11 09:40] LABS: BG BASE EXCESS -0.4 mmol/L (-2.0-2.0); BG CARBOXYHEMOGLOBIN 0.3 % (0.5-1.5); BG DEOXYHEMOGLOBIN 1.5 % (0.0-5.0); BG FRACTION INSPIRED OXYGEN 40; BG HCO3 ACT 22.9 mmol/L (22.0-26.0); BG METHEMOGLOBIN 0.3 % (0.0-1.5); BG OXYGEN SATURATION 98.5 % (92.0-98.5); BG OXYHEMOGLOBIN 97.9 % (94.0-97.0); BG PCO2 33.2 mmHg (35.0-45.0); BG PH 7.456 (7.350-7.450); BG PO2 121.9 mmHg (75.0-100.0); BG SAMPLE SITE RIGHT RADIAL; BG TOTAL HEMOGLOBIN 12.1 g/dL (12.0-18.0); BG VENT MODE VENT - AC
[2020-11-11] MEDS: CARVEDILOL 12.5MG TABLET PO SCH ×2 (10:01→22:59)
[2020-11-11] MEDS: CEFTRIAXONE 1,000 MG in DEXTROSE 5% WATER 50 ML IV SCH (12:31)
[2020-11-11] MEDS: ACETAMINOPHEN 325MG TABLET PO PRN (20:34)
[2020-11-12] VITALS (71 sets, daily range): BP systolic 91–141; BP diastolic 44–92
[2020-11-12] MEDS: IPRATROPIUM/ALBUTEROL 0.5-3(2.5)MG/3ML NEB HHN SCH ×4 (01:33→20:20)
[2020-11-12] MEDS: ACETAMINOPHEN 325MG TABLET PO PRN (05:44)
[2020-11-12] MEDS: VANCOMYCIN 1250MG in DEXTROSE 5% WATER 250ML IV SCH (05:44)
[2020-11-12 06:41] LABS: BASOPHILS % 0.3 % (0.0-2.0); EOSINOPHILS % 0.5 % (0.0-5.0); HEMATOCRIT. 33.4 % (42.0-52.0); HEMOGLOBIN. 11.4 g/dL (14.0-18.0); LYMPHOCYTES % 12.7 % (20.0-50.0); MEAN CORPUSCULAR HEMOGLOBIN 29.3 pg (28.0-32.0); MEAN CORPUSCULAR VOLUME 85.8 fL (80.0-94.0); MEAN PLATELET VOLUME 7.5 fl (7.4-10.4); MONOCYTES % 13.6 % (2.0-8.0); NEUTROPHILS % 72.9 % (40.0-76.0); PLATELET 249 x1000/uL (130-400); RED BLOOD CELL COUNT 3.89 mill/uL (4.7-6.1); RED CELL DISTRIBUTION WIDTH 14.5 % (11.6-14.6)
[2020-11-12 07:01] LABS: CHLORIDE 103 mEq/L (98-107)
[2020-11-12 07:08] LABS: VANCOMYCIN TROUGH 20.2 ug/mL (5.0-10.0)
[2020-11-12] MEDS: PANTOPRAZOLE 40MG DR TABLET PO SCH (08:20)
[2020-11-12] MEDS: CARVEDILOL 12.5MG TABLET PO SCH ×2 (08:21→21:37)
[2020-11-12] MEDS: LEVETIRACETAM 500MG/5ML CUP PO SCH ×2 (08:21→21:37)
[2020-11-12 10:16] LABS: BG BASE EXCESS 2.1 mmol/L (-2.0-2.0); BG CARBOXYHEMOGLOBIN 0.2 % (0.5-1.5); BG DEOXYHEMOGLOBIN 2.6 % (0.0-5.0); BG HCO3 ACT 25.5 mmol/L (22.0-26.0); BG METHEMOGLOBIN 0.5 % (0.0-1.5); BG OXYGEN SATURATION 97.4 % (92.0-98.5); BG OXYHEMOGLOBIN 96.7 % (94.0-97.0); BG PCO2 35.9 mmHg (35.0-45.0); BG PO2 94.6 mmHg (75.0-100.0); BG SAMPLE SITE RIGHT RADIAL; BG VENT MODE VENT - CPAP
[2020-11-12] MEDS ORDERED: RACEPINEPHRINE 2.25% 0.5ML NEB VIAL HHN NR (12:00)
[2020-11-12] MEDS ORDERED: RACEPINEPHRINE 2.25% 0.5ML NEB VIAL HHN PRN ×2 (12:00→15:00)
[2020-11-12] MEDS: CEFTRIAXONE 1,000 MG in DEXTROSE 5% WATER 50 ML IV SCH (13:26)
[2020-11-12] MEDS: ACETYLCYSTEINE 100MG/ML 10% VIAL 4ML INH SCH (16:09)
[2020-11-12] MEDS: METHYLPREDNISOLONE SOD SUCC 125 MG/2 ML VIAL IV SCH ×2 (16:17→21:37)
[2020-11-12] MEDS ORDERED: LACTULOSE 20G/30ML UDC PEG NR (17:00)
[2020-11-13] VITALS (81 sets, daily range): BP systolic 99–150; BP diastolic 63–99
[2020-11-13] MEDS: IPRATROPIUM/ALBUTEROL 0.5-3(2.5)MG/3ML NEB HHN SCH ×5 (02:27→20:01)
[2020-11-13] MEDS: ACETYLCYSTEINE 100MG/ML 10% VIAL 4ML INH SCH ×3 (02:28→14:01)
[2020-11-13] MEDS: METHYLPREDNISOLONE SOD SUCC 125 MG/2 ML VIAL IV SCH ×2 (05:59→14:26)
[2020-11-13 06:55] LABS: HEMATOCRIT 33.5 % (42.0-52.0); HEMOGLOBIN 11.2 g/dL (14.0-18.0); MEAN CORPUSCULAR HEMOGLOBIN 28.6 pg (28.0-32.0); MEAN CORPUSCULAR VOLUME 85.4 fL (80.0-94.0); PLATELET 293 x1000/uL (130-400); RED BLOOD CELL COUNT 3.92 mill/uL (4.7-6.1); RED CELL DISTRIBUTION WIDTH 14.5 % (11.6-14.6)
[2020-11-13 07:00] LABS: CHLORIDE 104 mEq/L (98-107)
[2020-11-13] MEDS: DOCUSATE SODIUM SUGAR FREE 100MG/10ML UDC PEG SCH ×2 (09:32→17:00)
[2020-11-13] MEDS: LEVETIRACETAM 500MG/5ML CUP PO SCH ×2 (09:32→21:41)
[2020-11-13] MEDS: PANTOPRAZOLE 40MG DR TABLET PO SCH (09:32)
[2020-11-13] MEDS: CARVEDILOL 12.5MG TABLET PO SCH ×2 (09:33→21:41)
[2020-11-13] MEDS: CEFTRIAXONE 1,000 MG in DEXTROSE 5% WATER 50 ML IV SCH (12:30)
[2020-11-14] VITALS (13 sets, daily range): BP systolic 107–130; BP diastolic 61–85
[2020-11-14] MEDS: METHYLPREDNISOLONE SOD SUCC 125 MG/2 ML VIAL IV SCH ×4 (01:09→21:31)
[2020-11-14] MEDS: IPRATROPIUM/ALBUTEROL 0.5-3(2.5)MG/3ML NEB HHN SCH ×3 (02:10→14:00)
[2020-11-14] MEDS: ACETYLCYSTEINE 100MG/ML 10% VIAL 4ML INH SCH ×3 (02:10→14:44)
[2020-11-14] MEDS: LEVETIRACETAM 500MG/5ML CUP PO SCH ×2 (08:50→21:31)
[2020-11-14] MEDS: PANTOPRAZOLE 40MG DR TABLET PO SCH (08:50)
[2020-11-14] MEDS: DOCUSATE SODIUM SUGAR FREE 100MG/10ML UDC PEG SCH ×2 (08:50→18:09)
[2020-11-14] MEDS: CARVEDILOL 12.5MG TABLET PO SCH ×2 (08:52→21:32)
[2020-11-14] MEDS ORDERED: FAMOTIDINE 20MG TABLET PO SCH (21:00)
== END 2020-11-14 23:13 | DRG 720 ==
LOC: ER 21:19 → MICUSO 23:39 → CVICU 11-08 07:17 → 3WST 11-13 22:04
PROVIDERS: ADMIT Internal Medicine; ATTEND Internal Medicine
PROC: 5A1955Z Respiratory Ventilation, Greater than 96 Consecutive Hours (ICD-10-PCS; principal; 2020-11-07)
PROC: 0BH17EZ Insertion of Endotracheal Airway into Trachea, Via Natural or Artificial Opening (ICD-10-PCS; 2020-11-07)
PROC: 4A10X4Z Monitoring of Central Nervous Electrical Activity, External Approach (ICD-10-PCS; 2020-11-09)
PROC: 05H433Z Insertion of Infusion Device into Left Innominate Vein, Percutaneous Approach (ICD-10-PCS; 2020-11-09)
PROC: B54NZZA Ultrasonography of Left Upper Extremity Veins, Guidance (ICD-10-PCS; 2020-11-09)
DX: A41.59 Other Gram-negative sepsis (principal); J96.01 Acute respiratory failure with hypoxia; G93.6 Cerebral edema; G93.41 Metabolic encephalopathy; J15.0 Pneumonia due to Klebsiella pneumoniae; I11.0 Hypertensive heart disease with heart failure; E44.1 Mild protein-calorie malnutrition; G40.901 Epilepsy, unspecified, not intractable, with status epilepticus; G93.1 Anoxic brain damage, not elsewhere classified; I50.22 Chronic systolic (congestive) heart failure; I42.9 Cardiomyopathy, unspecified; G93.89 Other specified disorders of brain; I82.512 Chronic embolism and thrombosis of left femoral vein; Z20.822 Contact with and (suspected) exposure to COVID-19; E78.5 Hyperlipidemia, unspecified; E78.00 Pure hypercholesterolemia, unspecified; I25.10 Atherosclerotic heart disease of native coronary artery without angina pectoris; I48.0 Paroxysmal atrial fibrillation; R13.10 Dysphagia, unspecified; Z82.49 Family history of ischemic heart disease and other diseases of the circulatory system; Z86.73 Personal history of transient ischemic attack (TIA), and cerebral infarction without residual deficits; Z95.1 Presence of aortocoronary bypass graft; Z95.810 Presence of automatic (implantable) cardiac defibrillator; Z68.23 Body mass index [BMI] 23.0-23.9, adult; Z79.01 Long term (current) use of anticoagulants; Z95.828 Presence of other vascular implants and grafts; Z93.1 Gastrostomy status
CPT/HCPCS: 36415; 36600; 71045; 76937; 80048; 80053; 80202; 81003; 82140; 82375; 82805; 83605; 83735; 83880; 84145; 84484; 85025; 85027; 87070; 87077; 87186; 87426; 93005; 93970; 94002; 94003; 94640; 95816; 99291; C1725; J0696; J1650; J1953; J2060; J2250; J2270; J2405; J2704; J2930; J3010; J3370; J3475; J3490; J7050; J7060; J7608; A4315

== ENCOUNTER 2021-01-24 10:15 | Inpatient (IN) | payer MEDICAID ==
[~2021-01-24] VITALS: Ht 177.8 cm; Wt 71.2 kg
[~2021-01-24 10:15] MED LIST changes: +ASPI-1497 MT; +LACT10SO30 MT; +METO-396 MT; -SODIUM CHLORIDE 0.9% 10ML VIAL ONE; -VECURONIUM BROMIDE 10 MG/VIAL IV ONE
[2021-01-24] MEDS ORDERED: SODIUM CHLORIDE 0.9% 1000ML BAG (SEPSIS BOLUS) IV ONE (11:00)
[2021-01-24] MEDS ORDERED: VANCOMYCIN 1 G PREMIX 200 ML IV ONE (11:00)
[2021-01-24] MEDS ORDERED: PIPERACILLIN/TAZ 3.375G PREMIX 50 ML IV ONE (11:00)
[2021-01-24 11:14] LABS: BASOPHILS % 0.2 % (0.0-2.0); EOSINOPHILS % 0.1 % (0.0-5.0); HEMATOCRIT. 37.5 % (42.0-52.0); HEMOGLOBIN. 12.1 g/dL (14.0-18.0); LYMPHOCYTES % 11.9 % (20.0-50.0); MEAN CORPUSCULAR HEMOGLOBIN 27.8 pg (28.0-32.0); MEAN CORPUSCULAR VOLUME 86.3 fL (80.0-94.0); MEAN PLATELET VOLUME 7.7 fl (7.4-10.4); MONOCYTES % 7.3 % (2.0-8.0); NEUTROPHILS % 80.5 % (40.0-76.0); PLATELET 305 x1000/uL (130-400); RED BLOOD CELL COUNT 4.34 mill/uL (4.7-6.1); RED CELL DISTRIBUTION WIDTH 15.3 % (11.6-14.6)
[2021-01-24 11:22] LABS: CHLORIDE 111 mEq/L (98-107)
[2021-01-24 11:26] LABS: INR 1.2; PROTHROMBIN TIME 12.4 sec (9.6-11.0)
[2021-01-24] MEDS ORDERED: ASPIRIN 300MG SUPP PR ONE (12:00)
[2021-01-24] MEDS ORDERED: ASPIRIN 325MG EC TABLET PO ONE (12:00)
[2021-01-24 12:09] LABS: CLARITY URINE CLEAR (CLEAR); COLOR URINE YELLOW (YELLOW); KETONES URINE NEGATIVE (NEGATIVE); LEUKOCYTE ESTERASE URINE NEGATIVE (NEGATIVE); NITRITE URINE NEGATIVE (NEGATIVE); OCCULT BLOOD URINE NEGATIVE (NEGATIVE); PH URINE 7.5 (4.5-8.0); PROTEIN URINE NEGATIVE (NEGATIVE); SPECIFIC GRAVITY URINE 1.011 (1.005-1.030); UROBILINOGEN URINE 0.2 E.U./dL (0.2-1.0)
[2021-01-24] MEDS ORDERED: ONDANSETRON HCL 4MG/2ML INJ IV PRN (22:30)
[2021-01-24] MEDS ORDERED: CLONIDINE 0.1MG TABLET PO PRN (22:30)
[2021-01-24] MEDS ORDERED: MAGNESIUM/ALUMINUM HYDROXIDE/SIMETHICONE 30ML UDC PO PRN (22:30)
[2021-01-24] MEDS ORDERED: HYDROCODONE/ACETAMINOPHEN 5/325MG TABLET PO PRN (22:30)
[2021-01-24] MEDS ORDERED: ENOXAPARIN 40MG/0.4ML SYR SUBCUT SCH (22:30)
[2021-01-24 23:53] VITALS: BP 98/76
[2021-01-25] VITALS (78 sets, daily range): BP systolic 79–181; BP diastolic 42–134
[2021-01-25 05:25] LABS: BG CARBOXYHEMOGLOBIN 0.3 % (0.5-1.5); BG DEOXYHEMOGLOBIN 16.7 % (0.0-5.0); BG FRACTION INSPIRED OXYGEN 100; BG HCO3 ACT 24.5 mmol/L (22.0-26.0); BG METHEMOGLOBIN 0.3 % (0.0-1.5); BG OXYGEN SATURATION 83.2 % (92.0-98.5); BG OXYHEMOGLOBIN 82.7 % (94.0-97.0); BG PCO2 35.2 mmHg (35.0-45.0); BG PO2 48.1 mmHg (75.0-100.0); BG SAMPLE SITE LEFT BRACHIAL; BG TOTAL HEMOGLOBIN 12.6 g/dL (12.0-18.0); BG VENT MODE MASK - NRB
[2021-01-25] MEDS ORDERED: NALOXONE HCL 0.4MG/ML VIAL IV PRN (05:45)
[2021-01-25] MEDS ORDERED: NOREPINEPHRINE 8MG/250ML PMX 250 ML IV PRN (06:30)
[2021-01-25] MEDS: PROPOFOL 10MG/ML 100ML 100 ML IV PRN ×2 (06:40→20:43)
[2021-01-25] MEDS ORDERED: NOREPINEPHRINE 8 MG in DEXTROSE 5% WATER 250 ML IV PRN (06:45)
[2021-01-25] MEDS ORDERED: ETOMIDATE 2MG/ML 10ML VIAL IV ONE (08:20)
[2021-01-25] MEDS ORDERED: SODIUM CHLORIDE 0.9% 10ML VIAL ONE (08:20)
[2021-01-25] MEDS ORDERED: VECURONIUM BROMIDE 10 MG/VIAL IV ONE (08:20)
[2021-01-25 08:28] LABS: BG BASE EXCESS -3.6 mmol/L (-2.0-2.0); BG CARBOXYHEMOGLOBIN 0.3 % (0.5-1.5); BG FRACTION INSPIRED OXYGEN 100; BG HCO3 ACT 23.2 mmol/L (22.0-26.0); BG METHEMOGLOBIN 0.4 % (0.0-1.5); BG OXYGEN SATURATION 77.8 % (92.0-98.5); BG OXYHEMOGLOBIN 77.3 % (94.0-97.0); BG PCO2 48.7 mmHg (35.0-45.0); BG PH 7.296 (7.350-7.450); BG PO2 50.3 mmHg (75.0-100.0); BG SAMPLE SITE RIGHT BRACHIAL; BG VENT MODE VENT - AC
[2021-01-25] MEDS: PHENYLEPHRINE 100 MG in DEXT 5% WATER 240 ML IV PRN ×2 (08:32→11:34)
[2021-01-25] MEDS ORDERED: METOPROLOL TARTRATE 5MG/5ML VIAL IV NR (09:45)
[2021-01-25] MEDS: DOCUSATE SODIUM SUGAR FREE 100MG/10ML UDC NG SCH (09:53)
[2021-01-25 10:20] LABS: HEMATOCRIT. 49.5 % (42.0-52.0); HEMOGLOBIN. 15.7 g/dL (14.0-18.0); MEAN CORPUSCULAR HEMOGLOBIN 28.2 pg (28.0-32.0); MEAN CORPUSCULAR VOLUME 88.9 fL (80.0-94.0); MEAN PLATELET VOLUME 7.9 fl (7.4-10.4); PLATELET 305 x1000/uL (130-400); RED BLOOD CELL COUNT 5.57 mill/uL (4.7-6.1); RED CELL DISTRIBUTION WIDTH 15.4 % (11.6-14.6)
[2021-01-25 10:23] LABS: CHLORIDE 103 mEq/L (98-107)
[2021-01-25 10:26] LABS: PHOSPHORUS 4.9 mg/dL (2.5-4.9)
[2021-01-25 10:28] LABS: LDL CHOLESTEROL 77 mg/dL (5-100)
[2021-01-25 10:29] LABS: HDL CHOLESTEROL 27 mg/dL (40-59)
[2021-01-25 10:31] LABS: CREATINE KINASE MB FRACTION 2.3 ng/mL (0.5-3.6)
[2021-01-25 10:32] LABS: CREATINE KINASE 198 IU/L (39-308)
[2021-01-25 10:33] LABS: T4 FREE 1.73 ng/dL (0.76-1.46)
[2021-01-25] MEDS ORDERED: SODIUM CHLORIDE 3% FOR INH 4ML UD NEB INH NR (11:00)
[2021-01-25] MEDS: METOPROLOL TARTRATE 25MG TABLET PO SCH ×2 (11:32→21:00)
[2021-01-25] MEDS: AMPICILLIN SOD/SULBACTAM NA 1.5 G in SODIUM CHLORIDE 0.9% 50 ML IV SCH ×2 (11:32→17:13)
[2021-01-25] MEDS: METOCLOPRAMIDE HCL 10MG/2ML VIAL IV SCH ×2 (11:33→17:13)
[2021-01-25 11:43] LABS: PLATELET ESTIMATE NORMAL
[2021-01-25] MEDS: IPRATROPIUM/ALBUTEROL 0.5-3(2.5)MG/3ML NEB HHN SCH ×4 (12:30→23:44)
[2021-01-25] MEDS: ACETYLCYSTEINE 100MG/ML 10% VIAL 4ML INH SCH ×2 (12:30→23:44)
[2021-01-25] MEDS: VANCOMYCIN 1250MG in DEXTROSE 5% WATER 250ML IV SCH (15:00)
[2021-01-25 16:59] LABS: CREATINE KINASE MB FRACTION 2.8 ng/mL (0.5-3.6)
[2021-01-25] MEDS: CEFEPIME 2,000 MG in DEXT 5% WATER 100 ML IV SCH (22:32)
[2021-01-26] VITALS (104 sets, daily range): BP systolic 71–137; BP diastolic 23–92
[2021-01-26] MEDS: METOCLOPRAMIDE HCL 10MG/2ML VIAL IV SCH ×4 (01:12→18:25)
[2021-01-26 01:26] LABS: CREATINE KINASE MB FRACTION 2.5 ng/mL (0.5-3.6)
[2021-01-26] MEDS: IPRATROPIUM/ALBUTEROL 0.5-3(2.5)MG/3ML NEB HHN SCH ×5 (03:24→20:13)
[2021-01-26] MEDS: VANCOMYCIN 1250MG in DEXTROSE 5% WATER 250ML IV SCH (03:32)
[2021-01-26 06:24] LABS: CHLORIDE 104 mEq/L (98-107)
[2021-01-26] MEDS: OMEPRAZOLE 20MG CAPSULE EXTENDED RELEASE PO SCH ×2 (07:05→07:06)
[2021-01-26] MEDS: CEFEPIME 2,000 MG in DEXT 5% WATER 100 ML IV SCH ×2 (08:05→22:17)
[2021-01-26] MEDS: DOCUSATE SODIUM SUGAR FREE 100MG/10ML UDC NG SCH (08:05)
[2021-01-26] MEDS: METOPROLOL TARTRATE 25MG TABLET PO SCH ×2 (08:06→21:00)
[2021-01-26 08:16] LABS: BG BASE EXCESS 0.7 mmol/L (-2.0-2.0); BG CARBOXYHEMOGLOBIN 0.3 % (0.5-1.5); BG DEOXYHEMOGLOBIN 0.5 % (0.0-5.0); BG METHEMOGLOBIN 0.2 % (0.0-1.5); BG OXYGEN SATURATION 99.5 % (92.0-98.5); BG PH 7.466 (7.350-7.450); BG PO2 251.2 mmHg (75.0-100.0); BG SAMPLE SITE RIGHT RADIAL; BG TOTAL HEMOGLOBIN 11.8 g/dL (12.0-18.0); BG VENT MODE VENT - AC
[2021-01-26 09:10] LABS: HEMATOCRIT. 34.7 % (42.0-52.0); HEMOGLOBIN. 11.4 g/dL (14.0-18.0); MEAN CORPUSCULAR HEMOGLOBIN 28.9 pg (28.0-32.0); MEAN CORPUSCULAR VOLUME 87.7 fL (80.0-94.0); RED BLOOD CELL COUNT 3.95 mill/uL (4.7-6.1); RED CELL DISTRIBUTION WIDTH 14.6 % (11.6-14.6)
[2021-01-26] MEDS: ACETYLCYSTEINE 100MG/ML 10% VIAL 4ML INH SCH ×2 (09:25→16:54)
[2021-01-26] MEDS: PHENYLEPHRINE 100 MG in DEXT 5% WATER 240 ML IV PRN ×2 (09:35→23:20)
[2021-01-26] MEDS: MIDODRINE HCL 5MG TABLET PO SCH ×3 (10:55→18:25)
[2021-01-26 11:30] LABS: PLATELET 222 x1000/uL (130-400)
[2021-01-26 11:33] LABS: PLATELET ESTIMATE NORMAL
[2021-01-26] MEDS: ACETAMINOPHEN 325MG TABLET PO PRN (11:57)
[2021-01-26] MEDS: LORAZEPAM 2MG/ML CPJ IV PRN (11:58)
[2021-01-26] MEDS: VANCOMYCIN 1 G PREMIX 200 ML IV SCH (18:25)
[2021-01-27] VITALS (95 sets, daily range): BP systolic 88–144; BP diastolic 42–96
[2021-01-27] MEDS: IPRATROPIUM/ALBUTEROL 0.5-3(2.5)MG/3ML NEB HHN SCH ×3 (00:17→08:30)
[2021-01-27] MEDS: ACETYLCYSTEINE 100MG/ML 10% VIAL 4ML INH SCH ×3 (00:18→16:20)
[2021-01-27] MEDS: METOCLOPRAMIDE HCL 10MG/2ML VIAL IV SCH ×4 (00:53→17:26)
[2021-01-27] MEDS: OMEPRAZOLE 20MG CAPSULE EXTENDED RELEASE PO SCH (05:52)
[2021-01-27] MEDS: VANCOMYCIN 1 G PREMIX 200 ML IV SCH ×2 (05:53→17:25)
[2021-01-27 08:48] LABS: BG BASE EXCESS -0.1 mmol/L (-2.0-2.0); BG CARBOXYHEMOGLOBIN 0.3 % (0.5-1.5); BG DEOXYHEMOGLOBIN 0.7 % (0.0-5.0); BG FRACTION INSPIRED OXYGEN 50; BG HCO3 ACT 23.2 mmol/L (22.0-26.0); BG METHEMOGLOBIN 0.6 % (0.0-1.5); BG OXYGEN SATURATION 99.3 % (92.0-98.5); BG OXYHEMOGLOBIN 98.4 % (94.0-97.0); BG PCO2 33.1 mmHg (35.0-45.0); BG PH 7.463 (7.350-7.450); BG PO2 184.5 mmHg (75.0-100.0); BG SAMPLE SITE RIGHT BRACHIAL; BG VENT MODE VENT - AC
[2021-01-27] MEDS: DOCUSATE SODIUM SUGAR FREE 100MG/10ML UDC NG SCH (09:25)
[2021-01-27] MEDS: MIDODRINE HCL 5MG TABLET PO SCH ×3 (09:25→17:26)
[2021-01-27] MEDS: METOPROLOL TARTRATE 25MG TABLET PO SCH ×2 (09:25→21:32)
[2021-01-27] MEDS: CEFEPIME 2,000 MG in DEXT 5% WATER 100 ML IV SCH ×2 (09:26→21:32)
[2021-01-27] MEDS: IPRATROPIUM BROMIDE (0.02%) 0.5MG/2.5ML NEB HHN SCH ×2 (16:20→19:53)
[2021-01-27] MEDS: ACETAMINOPHEN 325MG TABLET PO PRN (21:32)
[2021-01-28] VITALS (67 sets, daily range): BP systolic 88–142; BP diastolic 54–97
[2021-01-28] MEDS: LORAZEPAM 2MG/ML CPJ IV PRN (00:04)
[2021-01-28] MEDS: ACETYLCYSTEINE 100MG/ML 10% VIAL 4ML INH SCH ×3 (00:28→13:47)
[2021-01-28] MEDS: IPRATROPIUM BROMIDE (0.02%) 0.5MG/2.5ML NEB HHN SCH ×4 (00:28→20:50)
[2021-01-28] MEDS: METOCLOPRAMIDE HCL 10MG/2ML VIAL IV SCH ×5 (00:41→23:03)
[2021-01-28 06:32] LABS: CHLORIDE 106 mEq/L (98-107)
[2021-01-28] MEDS: OMEPRAZOLE 20MG CAPSULE EXTENDED RELEASE PO SCH (06:40)
[2021-01-28] MEDS: VANCOMYCIN 1 G PREMIX 200 ML IV SCH ×2 (06:40→17:44)
[2021-01-28 06:46] LABS: VANCOMYCIN TROUGH 12.8 ug/mL (5.0-10.0)
[2021-01-28] MEDS: DOCUSATE SODIUM SUGAR FREE 100MG/10ML UDC NG SCH (09:00)
[2021-01-28] MEDS: METOPROLOL TARTRATE 25MG TABLET PO SCH ×2 (09:40→20:22)
[2021-01-28] MEDS: ACETAMINOPHEN 650MG/20.3ML UDC PO PRN (09:40)
[2021-01-28] MEDS: MIDODRINE HCL 5MG TABLET PO SCH ×3 (09:40→17:44)
[2021-01-28] MEDS: CEFEPIME 2,000 MG in DEXT 5% WATER 100 ML IV SCH (09:41)
[2021-01-28] MEDS ORDERED: IPRATROPIUM/ALBUTEROL 0.5-3(2.5)MG/3ML NEB HHN PRN (09:45)
[2021-01-28] MEDS: MEROPENEM 1,000 MG in SODIUM CHLORIDE 0.9% 100 ML IV SCH (21:50)
[2021-01-29] VITALS (48 sets, daily range): BP systolic 91–139; BP diastolic 57–99
[2021-01-29] MEDS: IPRATROPIUM BROMIDE (0.02%) 0.5MG/2.5ML NEB HHN SCH ×4 (01:43→20:59)
[2021-01-29] MEDS: ACETYLCYSTEINE 100MG/ML 10% VIAL 4ML INH SCH ×3 (01:43→16:01)
[2021-01-29] MEDS: OMEPRAZOLE 20MG CAPSULE EXTENDED RELEASE PO SCH (05:43)
[2021-01-29] MEDS: MEROPENEM 1,000 MG in SODIUM CHLORIDE 0.9% 100 ML IV SCH ×3 (05:43→21:16)
[2021-01-29] MEDS: METOCLOPRAMIDE HCL 10MG/2ML VIAL IV SCH ×3 (05:43→17:59)
[2021-01-29 05:47] LABS: BASOPHILS % 0.1 % (0.0-2.0); EOSINOPHILS % 1.6 % (0.0-5.0); HEMATOCRIT. 33.7 % (42.0-52.0); HEMOGLOBIN. 11.2 g/dL (14.0-18.0); LYMPHOCYTES % 9.7 % (20.0-50.0); MEAN CORPUSCULAR HEMOGLOBIN 28.5 pg (28.0-32.0); MEAN CORPUSCULAR VOLUME 85.6 fL (80.0-94.0); MEAN PLATELET VOLUME 7.6 fl (7.4-10.4); MONOCYTES % 9.1 % (2.0-8.0); NEUTROPHILS % 79.5 % (40.0-76.0); PLATELET 300 x1000/uL (130-400); RED BLOOD CELL COUNT 3.93 mill/uL (4.7-6.1); RED CELL DISTRIBUTION WIDTH 14.7 % (11.6-14.6)
[2021-01-29 07:08] LABS: CHLORIDE 106 mEq/L (98-107)
[2021-01-29 08:55] LABS: BG BASE EXCESS 0.6 mmol/L (-2.0-2.0); BG CARBOXYHEMOGLOBIN 0.3 % (0.5-1.5); BG DEOXYHEMOGLOBIN 1.1 % (0.0-5.0); BG METHEMOGLOBIN 0.1 % (0.0-1.5); BG OXYGEN SATURATION 98.9 % (92.0-98.5); BG OXYHEMOGLOBIN 98.5 % (94.0-97.0); BG PCO2 34.4 mmHg (35.0-45.0); BG PH 7.462 (7.350-7.450); BG PO2 140.3 mmHg (75.0-100.0); BG SAMPLE SITE RIGHT RADIAL; BG TOTAL HEMOGLOBIN 11.1 g/dL (12.0-18.0); BG VENT MODE VENT - SIMV
[2021-01-29] MEDS: MIDODRINE HCL 5MG TABLET PO SCH ×3 (09:04→18:00)
[2021-01-29] MEDS: METOPROLOL TARTRATE 25MG TABLET PO SCH ×2 (09:05→21:16)
[2021-01-29] MEDS: DOCUSATE SODIUM SUGAR FREE 100MG/10ML UDC NG SCH (09:05)
[2021-01-29] MEDS: ACETAMINOPHEN 650MG/20.3ML UDC PO PRN (09:05)
[2021-01-30] VITALS (33 sets, daily range): BP systolic 88–133; BP diastolic 57–95
[2021-01-30] MEDS: METOCLOPRAMIDE HCL 10MG/2ML VIAL IV SCH ×4 (00:55→16:46)
[2021-01-30] MEDS: ACETYLCYSTEINE 100MG/ML 10% VIAL 4ML INH SCH ×3 (00:57→14:14)
[2021-01-30] MEDS: IPRATROPIUM BROMIDE (0.02%) 0.5MG/2.5ML NEB HHN SCH ×4 (00:57→20:08)
[2021-01-30 05:44] LABS: BASOPHILS % 0.3 % (0.0-2.0); EOSINOPHILS % 1.5 % (0.0-5.0); HEMATOCRIT. 34.8 % (42.0-52.0); HEMOGLOBIN. 11.2 g/dL (14.0-18.0); LYMPHOCYTES % 16.3 % (20.0-50.0); MEAN CORPUSCULAR HEMOGLOBIN 27.5 pg (28.0-32.0); MEAN CORPUSCULAR VOLUME 85.6 fL (80.0-94.0); MEAN PLATELET VOLUME 8.3 fl (7.4-10.4); MONOCYTES % 10.5 % (2.0-8.0); NEUTROPHILS % 71.4 % (40.0-76.0); PLATELET 330 x1000/uL (130-400); RED BLOOD CELL COUNT 4.07 mill/uL (4.7-6.1); RED CELL DISTRIBUTION WIDTH 15.2 % (11.6-14.6)
[2021-01-30 05:52] LABS: CHLORIDE 107 mEq/L (98-107)
[2021-01-30] MEDS: OMEPRAZOLE 20MG CAPSULE EXTENDED RELEASE PO SCH (06:29)
[2021-01-30] MEDS: MEROPENEM 1,000 MG in SODIUM CHLORIDE 0.9% 100 ML IV SCH ×3 (06:30→21:03)
[2021-01-30] MEDS ORDERED: SODIUM POLYSTYRENE SULFONATE 15 G/60 ML BOT PO SCH (08:30)
[2021-01-30] MEDS: DOCUSATE SODIUM SUGAR FREE 100MG/10ML UDC NG SCH (08:53)
[2021-01-30] MEDS: MIDODRINE HCL 5MG TABLET PO SCH ×3 (08:53→16:46)
[2021-01-30] MEDS: METOPROLOL TARTRATE 25MG TABLET PO SCH ×2 (08:53→21:04)
[2021-01-30 10:14] LABS: BG BASE EXCESS 4.6 mmol/L (-2.0-2.0); BG CARBOXYHEMOGLOBIN 0.3 % (0.5-1.5); BG DEOXYHEMOGLOBIN 1.6 % (0.0-5.0); BG FRACTION INSPIRED OXYGEN 40; BG HCO3 ACT 28.5 mmol/L (22.0-26.0); BG METHEMOGLOBIN 0.6 % (0.0-1.5); BG OXYGEN SATURATION 98.4 % (92.0-98.5); BG OXYHEMOGLOBIN 97.5 % (94.0-97.0); BG PCO2 39.9 mmHg (35.0-45.0); BG PH 7.472 (7.350-7.450); BG PO2 111.5 mmHg (75.0-100.0); BG SAMPLE SITE RIGHT RADIAL; BG TOTAL HEMOGLOBIN 10.8 g/dL (12.0-18.0); BG VENT MODE VENT - CPAP
[2021-01-31] VITALS (24 sets, daily range): BP systolic 88–147; BP diastolic 56–100
[2021-01-31] MEDS: METOCLOPRAMIDE HCL 10MG/2ML VIAL IV SCH ×4 (00:09→18:06)
[2021-01-31] MEDS: IPRATROPIUM BROMIDE (0.02%) 0.5MG/2.5ML NEB HHN SCH ×4 (01:59→21:18)
[2021-01-31] MEDS: MEROPENEM 1,000 MG in SODIUM CHLORIDE 0.9% 100 ML IV SCH ×3 (05:32→21:41)
[2021-01-31] MEDS: DOCUSATE SODIUM SUGAR FREE 100MG/10ML UDC NG SCH (09:00)
[2021-01-31] MEDS: MIDODRINE HCL 5MG TABLET PO SCH ×3 (09:22→18:06)
[2021-01-31] MEDS: METOPROLOL TARTRATE 25MG TABLET PO SCH ×2 (09:22→21:42)
[2021-01-31 11:48] LABS: BG BASE EXCESS 3.2 mmol/L (-2.0-2.0); BG CARBOXYHEMOGLOBIN 0.3 % (0.5-1.5); BG DEOXYHEMOGLOBIN 1.9 % (0.0-5.0); BG FRACTION INSPIRED OXYGEN 40; BG HCO3 ACT 27.1 mmol/L (22.0-26.0); BG METHEMOGLOBIN 0.3 % (0.0-1.5); BG OXYGEN SATURATION 98.1 % (92.0-98.5); BG OXYHEMOGLOBIN 97.5 % (94.0-97.0); BG PCO2 38.4 mmHg (35.0-45.0); BG PH 7.466 (7.350-7.450); BG PO2 112.3 mmHg (75.0-100.0); BG SAMPLE SITE RIGHT RADIAL; BG TOTAL HEMOGLOBIN 10.4 g/dL (12.0-18.0); BG VENT MODE VENT - CPAP
[2021-02-01] VITALS (24 sets, daily range): BP systolic 94–125; BP diastolic 50–84
[2021-02-01] MEDS: METOCLOPRAMIDE HCL 10MG/2ML VIAL IV SCH ×4 (00:30→17:26)
[2021-02-01] MEDS: IPRATROPIUM BROMIDE (0.02%) 0.5MG/2.5ML NEB HHN SCH ×3 (02:49→13:48)
[2021-02-01] MEDS: MEROPENEM 1,000 MG in SODIUM CHLORIDE 0.9% 100 ML IV SCH ×3 (05:09→21:36)
[2021-02-01 05:56] LABS: BASOPHILS % 0.4 % (0.0-2.0); EOSINOPHILS % 2.4 % (0.0-5.0); HEMATOCRIT. 30.8 % (42.0-52.0); HEMOGLOBIN. 9.6 g/dL (14.0-18.0); LYMPHOCYTES % 23.5 % (20.0-50.0); MEAN CORPUSCULAR VOLUME 86.2 fL (80.0-94.0); MEAN PLATELET VOLUME 7.9 fl (7.4-10.4); MONOCYTES % 9.6 % (2.0-8.0); NEUTROPHILS % 64.1 % (40.0-76.0); PLATELET 378 x1000/uL (130-400); RED BLOOD CELL COUNT 3.57 mill/uL (4.7-6.1); RED CELL DISTRIBUTION WIDTH 15.2 % (11.6-14.6)
[2021-02-01 06:01] LABS: CHLORIDE 108 mEq/L (98-107)
[2021-02-01] MEDS: DOCUSATE SODIUM SUGAR FREE 100MG/10ML UDC NG SCH (08:47)
[2021-02-01] MEDS: MIDODRINE HCL 5MG TABLET PO SCH ×3 (08:47→17:27)
[2021-02-01] MEDS: METOPROLOL TARTRATE 25MG TABLET PO SCH ×2 (08:47→20:54)
[2021-02-01 08:54] LABS: BG BASE EXCESS 4.7 mmol/L (-2.0-2.0); BG CARBOXYHEMOGLOBIN 0.3 % (0.5-1.5); BG DEOXYHEMOGLOBIN 1.3 % (0.0-5.0); BG FRACTION INSPIRED OXYGEN 40; BG HCO3 ACT 28.7 mmol/L (22.0-26.0); BG METHEMOGLOBIN 0.2 % (0.0-1.5); BG OXYGEN SATURATION 98.7 % (92.0-98.5); BG OXYHEMOGLOBIN 98.2 % (94.0-97.0); BG PCO2 40.3 mmHg (35.0-45.0); BG PH 7.471 (7.350-7.450); BG PO2 128.6 mmHg (75.0-100.0); BG SAMPLE SITE RIGHT RADIAL; BG TOTAL HEMOGLOBIN 10.7 g/dL (12.0-18.0); BG VENT MODE VENT - CPAP
[2021-02-01 12:53] LABS: BG BASE EXCESS 2.2 mmol/L (-2.0-2.0); BG CARBOXYHEMOGLOBIN 0.3 % (0.5-1.5); BG DEOXYHEMOGLOBIN 2.4 % (0.0-5.0); BG FRACTION INSPIRED OXYGEN 40; BG METHEMOGLOBIN 0.2 % (0.0-1.5); BG OXYGEN SATURATION 97.6 % (92.0-98.5); BG OXYHEMOGLOBIN 97.1 % (94.0-97.0); BG PCO2 37.6 mmHg (35.0-45.0); BG PH 7.458 (7.350-7.450); BG PO2 101.8 mmHg (75.0-100.0); BG SAMPLE SITE RIGHT RADIAL; BG TOTAL HEMOGLOBIN 10.6 g/dL (12.0-18.0); BG VENT MODE T PIECE
[2021-02-01] MEDS ORDERED: RACEPINEPHRINE 2.25% 0.5ML NEB VIAL HHN SCH (14:00)
[2021-02-01] MEDS ORDERED: RACEPINEPHRINE 2.25% 0.5ML NEB VIAL HHN PRN (14:00)
[2021-02-01] MEDS ORDERED: RACEPINEPHRINE 2.25% 0.5ML NEB VIAL HHN ONE (14:00)
[2021-02-01] MEDS: IPRATROPIUM/ALBUTEROL 0.5-3(2.5)MG/3ML NEB HHN SCH ×2 (16:51→20:26)
[2021-02-01] MEDS: ACETYLCYSTEINE 100MG/ML 10% VIAL 4ML INH SCH ×2 (16:51→20:26)
[2021-02-02] VITALS (19 sets, daily range): BP systolic 99–130; BP diastolic 55–83
[2021-02-02] MEDS: IPRATROPIUM/ALBUTEROL 0.5-3(2.5)MG/3ML NEB HHN SCH ×6 (00:21→21:31)
[2021-02-02] MEDS: METOCLOPRAMIDE HCL 10MG/2ML VIAL IV SCH ×5 (00:30→23:32)
[2021-02-02] MEDS: MEROPENEM 1,000 MG in SODIUM CHLORIDE 0.9% 100 ML IV SCH ×3 (05:48→23:32)
[2021-02-02] MEDS: ACETYLCYSTEINE 100MG/ML 10% VIAL 4ML INH SCH ×3 (08:40→21:31)
[2021-02-02] MEDS: DOCUSATE SODIUM SUGAR FREE 100MG/10ML UDC NG SCH (09:29)
[2021-02-02] MEDS: METOPROLOL TARTRATE 25MG TABLET PO SCH ×2 (09:29→23:32)
[2021-02-02] MEDS: MIDODRINE HCL 5MG TABLET PO SCH ×3 (09:30→18:17)
[2021-02-03] VITALS (7 sets, daily range): BP systolic 92–114; BP diastolic 59–79
[2021-02-03] MEDS: IPRATROPIUM/ALBUTEROL 0.5-3(2.5)MG/3ML NEB HHN SCH ×5 (01:16→15:56)
[2021-02-03] MEDS: MEROPENEM 1,000 MG in SODIUM CHLORIDE 0.9% 100 ML IV SCH ×3 (05:06→21:29)
[2021-02-03] MEDS: METOCLOPRAMIDE HCL 10MG/2ML VIAL IV SCH ×3 (05:07→17:47)
[2021-02-03] MEDS: DOCUSATE SODIUM SUGAR FREE 100MG/10ML UDC NG SCH (08:34)
[2021-02-03] MEDS: METOPROLOL TARTRATE 25MG TABLET PO SCH ×2 (08:34→21:29)
[2021-02-03] MEDS: MIDODRINE HCL 5MG TABLET PO SCH ×3 (08:34→17:47)
[2021-02-03] MEDS: ACETYLCYSTEINE 100MG/ML 10% VIAL 4ML INH SCH ×2 (08:53→16:00)
[2021-02-04] MEDS: METOCLOPRAMIDE HCL 10MG/2ML VIAL IV SCH ×4 (01:49→18:16)
[2021-02-04] MEDS: ACETAMINOPHEN 650MG/20.3ML UDC PO PRN (02:18)
[2021-02-04 04:00] VITALS: BP 108/74
[2021-02-04] MEDS: IPRATROPIUM/ALBUTEROL 0.5-3(2.5)MG/3ML NEB HHN SCH ×4 (05:05→20:52)
[2021-02-04] MEDS: MEROPENEM 1,000 MG in SODIUM CHLORIDE 0.9% 100 ML IV SCH ×3 (06:05→23:00)
[2021-02-04 08:00] VITALS: BP 98/65
[2021-02-04] MEDS: ACETYLCYSTEINE 100MG/ML 10% VIAL 4ML INH SCH ×2 (08:16→20:49)
[2021-02-04] MEDS: MIDODRINE HCL 5MG TABLET PO SCH ×3 (09:40→18:17)
[2021-02-04] MEDS: METOPROLOL TARTRATE 25MG TABLET PO SCH ×2 (09:41→21:00)
[2021-02-04] MEDS: DOCUSATE SODIUM SUGAR FREE 100MG/10ML UDC NG SCH (09:41)
[2021-02-04 12:00] VITALS: BP 97/60
[2021-02-04 16:00] VITALS: BP 110/72
[2021-02-04 20:00] VITALS: BP 104/70
[2021-02-05] VITALS (7 sets, daily range): BP systolic 105–116; BP diastolic 70–85
[2021-02-05] MEDS: METOCLOPRAMIDE HCL 10MG/2ML VIAL IV SCH ×4 (00:08→18:35)
[2021-02-05] MEDS: IPRATROPIUM/ALBUTEROL 0.5-3(2.5)MG/3ML NEB HHN SCH ×6 (01:06→21:04)
[2021-02-05] MEDS: DOCUSATE SODIUM SUGAR FREE 100MG/10ML UDC NG SCH (09:00)
[2021-02-05] MEDS: ACETYLCYSTEINE 100MG/ML 10% VIAL 4ML INH SCH ×2 (10:12→17:10)
[2021-02-05] MEDS: METOPROLOL TARTRATE 25MG TABLET PO SCH ×2 (10:16→21:00)
[2021-02-05] MEDS: MIDODRINE HCL 5MG TABLET PO SCH ×3 (10:17→18:36)
[2021-02-05] MEDS: ACETAMINOPHEN 650MG/20.3ML UDC PO PRN (18:37)
== END 2021-02-06 00:51 | DRG 720 ==
LOC: ER 10:19 → EDBEDREQSVC 10:52 → EDBEDREQTM 10:52 → 8WST 12:15 → EDBEDREQ 12:21 → EDBEDREQTM 12:21 → ENRESERV 20:26 → MICUSO 01-25 05:20 → 7WST 02-02 17:43 → 7EST 02-03 11:31
PROVIDERS: ADMIT Internal Medicine; ATTEND Internal Medicine
PROC: 5A1955Z Respiratory Ventilation, Greater than 96 Consecutive Hours (ICD-10-PCS; principal; 2021-01-25)
PROC: 0BH17EZ Insertion of Endotracheal Airway into Trachea, Via Natural or Artificial Opening (ICD-10-PCS; 2021-01-25)
PROC: 02HV33Z Insertion of Infusion Device into Superior Vena Cava, Percutaneous Approach (ICD-10-PCS; 2021-01-26)
PROC: B548ZZA Ultrasonography of Superior Vena Cava, Guidance (ICD-10-PCS; 2021-01-26)
DX: A41.59 Other Gram-negative sepsis (principal); J96.01 Acute respiratory failure with hypoxia; R65.21 Severe sepsis with septic shock; J69.0 Pneumonitis due to inhalation of food and vomit; I21.4 Non-ST elevation (NSTEMI) myocardial infarction; G93.40 Encephalopathy, unspecified; E44.1 Mild protein-calorie malnutrition; I11.0 Hypertensive heart disease with heart failure; J15.1 Pneumonia due to Pseudomonas; I50.22 Chronic systolic (congestive) heart failure; N39.0 Urinary tract infection, site not specified; K21.9 Gastro-esophageal reflux disease without esophagitis; G40.909 Epilepsy, unspecified, not intractable, without status epilepticus; E78.5 Hyperlipidemia, unspecified; E78.00 Pure hypercholesterolemia, unspecified; I25.10 Atherosclerotic heart disease of native coronary artery without angina pectoris; I45.9 Conduction disorder, unspecified; R13.10 Dysphagia, unspecified; R74.01 Elevation of levels of liver transaminase levels; L89.156 Pressure-induced deep tissue damage of sacral region; I48.0 Paroxysmal atrial fibrillation; R47.01 Aphasia; Z20.822 Contact with and (suspected) exposure to COVID-19; E80.6 Other disorders of bilirubin metabolism; D68.69 Other thrombophilia; B96.1 Klebsiella pneumoniae [K. pneumoniae] as the cause of diseases classified elsewhere; G81.94 Hemiplegia, unspecified affecting left nondominant side; Z82.49 Family history of ischemic heart disease and other diseases of the circulatory system; Z95.1 Presence of aortocoronary bypass graft; I25.2 Old myocardial infarction; Z95.0 Presence of cardiac pacemaker; Z93.1 Gastrostomy status; Z86.73 Personal history of transient ischemic attack (TIA), and cerebral infarction without residual deficits; Z87.01 Personal history of pneumonia (recurrent); Z95.828 Presence of other vascular implants and grafts; Z86.718 Personal history of other venous thrombosis and embolism; Z74.01 Bed confinement status; Z68.22 Body mass index [BMI] 22.0-22.9, adult; I47.1 Supraventricular tachycardia; E87.5 Hyperkalemia
CPT/HCPCS: 31500; 36415; 36600; 71045; 71250; 76700; 76937; 80048; 80053; 80061; 80076; 80202; 81003; 82040; 82375; 82550; 82553; 82805; 82962; 83605; 83735; 84100; 84134; 84145; 84439; 84443; 84478; 84484; 85025; 87070; 87077; 87186; 93005; 93306; 93970; 94003; 94640; 94667; 97161; 99291; C1725; C1893; J0295; J0692; J1650; J2060; J2185; J2370; J2543; J2704; J2765; J3370; J3490; J7030; J7040; J7050; J7060; J7608; U0003; U0005